=== PATIENT | female | born 1960 | race American Indian/Alaskan Native ===

== ENCOUNTER 2017-06-18 20:13 | Emergency (ER) | payer MEDICARE ==
[2017-06-18 21:46] LABS: Basophils % (Auto) 0.4 % (0.0-1.8); Eosinophils % (Auto) 1.7 % (0.0-4.3); Hematocrit 36.6 % (30.3-42.9); Hemoglobin 11.7 gm/dl (10.1-14.3); Mean Corpuscular HGB Conc 32 % (30-34); Mean Corpuscular Volume 80 fl (79-97); Platelet Count 328 K/mm3 (140-440); Red Blood Count 4.58 M/mm3 (3.65-5.03); Red Cell Distribution Width 16.3 % (13.2-15.2); White Blood Count 13.3 K/mm3 (4.5-11.0)
[2017-06-18 21:50] LABS: Mean Corpuscular Hemoglobin 26 pg (28-32)
[2017-06-18 22:03] LABS: BUN/Creatinine Ratio 20.83; Calcium 8.8 mg/dL (8.4-10.2); Chloride 94.8 mmol/L (98-107); Potassium 4.7 mmol/L (3.6-5.0)
[2017-06-19] MEDS ORDERED: NACL 0.9% 1000 ML 1,000 ML IV ONE (01:20)
--- NOTE | 2017-06-19 01:43 | Emergency Department Report ---
HPI - General Chief Complaint: Hyperglycemia Time Seen by Provider: 06/19/17 00:45 - HPI HPI: This is a 56-year-old female presents to the emergency department with the need for a medication refill and concern for hyperglycemia. The patient is insulin-dependent diabetic and feels like her blood sugar may be running high. Patient takes metformin 1000 mg twice daily. She says that she is also supposed to be on glipizide. She takes Lantus at night and says that she used to be on 80 units in the evening but was started on 40 units the last time she was admitted to the hospital for diabetic ketoacidosis. She does not currently have a primary care physician. She denies any chest pain, headache, vision change, shortness of breath, nausea, vomiting or abdominal pain. The patient says she has been out of her psychiatric medications for the past 6 months. She has not quite out of the diabetes medications but she is about to run out and did not want to wait until that point. ED Past Medical Hx - Past Medical History Previous Medical History?: Yes Hx Congestive Heart Failure: No Hx Diabetes: Yes Hx Liver Disease: No Hx Renal Disease: No Hx Arthritis: Yes Hx Kidney Stones: No Hx Psychiatric Treatment: Yes (depression, mood swings) Hx Asthma: No Hx COPD: No - Surgical History Past Surgical History?: Yes Hx Cholecystectomy: Yes Additional Surgical History: bladder surgery, hysteretomy, kidney stone removal x5, - Social History Smoking Status: Never Smoker Substance Use Type: None - Medications Home Medications: Home Medications Medication Instructions Recorded Confirmed Last Taken Type Metoclopramide HCl [Metoclopramide 10 mg PO DAILY 04/14/17 04/14/17 Unknown History HCl Odt] Oxybutynin Chloride [Ditropan Xl] 15 mg PO QDAY 04/14/17 04/14/17 Unknown History ALBUTEROL Inhaler [ProAir HFA 2 puff IH QID PRN #1 pump 04/16/17 Unknown Rx Inhaler] AtorvaSTATin [Lipitor] 80 mg PO QHS #60 tablet 04/16/17 Unknown Rx Ciprofloxacin HCl [Ciprofloxacin 500 mg PO Q12HR #10 tab 04/16/17 Unknown Rx TAB] FLUoxetine HCL [FLUoxetine] 40 mg PO QAM #30 capsule 04/16/17 Unknown Rx Gabapentin [Neurontin] 300 mg PO Q8HR #90 capsule 04/16/17 Unknown Rx risperiDONE [RisperiDONE] 1 mg PO QDAY #30 tablet 04/16/17 Unknown Rx traMADol [Ultram 50 MG tab] 50 mg PO Q6HR PRN #20 tablet 04/16/17 Unknown Rx Insulin Glargine [Lantus VIAL] 40 units SQ QHS #1 vial 06/19/17 Unknown Rx Metformin HCl [Fortamet ER] 1,000 mg PO BID #60 tab.er.24 06/19/17 Unknown Rx glipiZIDE [glipiZIDE ER] 5 mg PO QAM #30 tab.er.24 06/19/17 Unknown Rx ED Review of Systems ROS: Stated complaint: HIGH BLOOD SUGAR Other details as noted in HPI Comment: All other systems reviewed and negative Constitutional: denies: chills, fever Eyes: denies: eye pain, eye discharge, vision change ENT: denies: ear pain, throat pain Respiratory: denies: cough, shortness of breath, wheezing Cardiovascular: denies: chest pain, palpitations Gastrointestinal: denies: abdominal pain, nausea, diarrhea Genitourinary: denies: urgency, dysuria, discharge Musculoskeletal: denies: back pain, joint swelling, arthralgia Skin: denies: rash, lesions Neurological: denies: headache, weakness, paresthesias Physical Exam - Physical Exam Vital Signs: Vital Signs 06/18/17 06/19/17 06/19/17 21:19 00:32 00:40 Temperature 98.1 F Pulse Rate 83 91 H 79 Respiratory 20 26 H 24 Rate Blood Pressure 160/77 Blood Pressure 147/90 [Right] O2 Sat by Pulse 98 98 97 Oximetry 06/19/17 06/19/17 06/19/17 00:50 01:00 01:09 Temperature 97.8 F Pulse Rate 78 83 Respiratory 24 26 H 17 Rate Blood Pressure 142/72 136/71 Blood Pressure [Right] O2 Sat by Pulse 98 96 Oximetry Physical Exam: GENERAL: The patient is well-developed well-nourished. HEENT: Normocephalic. Atraumatic. Extraocular motions are intact. Patient has moist mucous membranes. Pupils equal reactive to light bilaterally. NECK: Supple. Trachea is midline. CHEST/LUNGS: Clear to auscultation. There is no respiratory distress noted. HEART/CARDIOVASCULAR: Regular. There is no tachycardia. There is no gallop rub or murmur. ABDOMEN: Abdomen is soft, nontender. Patient has normal bowel sounds. There is no abdominal distention. SKIN: Skin is warm and dry. NEURO: The patient is awake, alert, and oriented. The patient is cooperative. The patient has no focal neurologic deficits. The patient has normal speech. MUSCULOSKELETAL: There is no tenderness or deformity. There is no limitation range of motion. There is no evidence of acute injury. ED Course Vital Signs 06/18/17 06/19/17 06/19/17 21:19 00:32 00:40 Temperature 98.1 F Pulse Rate 83 91 H 79 Respiratory 20 26 H 24 Rate Blood Pressure 160/77 Blood Pressure 147/90 [Right] O2 Sat by Pulse 98 98 97 Oximetry 06/19/17 06/19/17 06/19/17 00:50 01:00 01:09 Temperature 97.8 F Pulse Rate 78 83 Respiratory 24 26 H 17 Rate Blood Pressure 142/72 136/71 Blood Pressure [Right] O2 Sat by Pulse 98 96 Oximetry ED Medical Decision Making - Lab Data Result diagrams: 06/18/17 21:37 06/18/17 21:37 - Medical Decision Making 56-year-old female presents the emergency department mostly for medication refill but also with suspicion for elevated blood sugar. She had a blood sugar of 277 upon first presentation but when an Accu-Chek was done it was up greater than 400. There was no elevated anion gap or any venous acidosis and therefore low suspicion for diabetic ketoacidosis. She was given IV fluid resuscitation and IV insulin. Eventually the blood sugar came back down to about 250. Patient was given multiple primary care doctor referrals. She was given a refill of her Lantus, metformin, and I restarted her on glipizide. I did not want had her fourth diabetes medication as I cannot follow her and I did not want to cause hypoglycemia. However the patient was given multiple referrals for primary care and will keep a blood sugar log. She will return to the ER with any worsening of her symptoms or any acute distress. - Differential Diagnosis DKA, HHNK, medication noncompliance Critical Care Time: No Critical care attestation.: If time is entered above; I have spent that time in minutes in the direct care of this critically ill patient, excluding procedure time. ED Disposition Clinical Impression: Hyperglycemia, Medication refill Disposition: DC-01 TO HOME OR SELFCARE Is pt being admited?: No Condition: Stable Prescriptions: Insulin Glargine [Lantus VIAL] 40 units SQ QHS #1 vial glipiZIDE [glipiZIDE ER] 5 mg PO QAM #30 tab.er.24 Metformin HCl [Fortamet ER] 1,000 mg PO BID #60 tab.er.24 Referrals: ELIZABETH POND MD [Primary Care Provider] - 3-5 Days SALVADOR WELLS MD [Staff Physician] - 3-5 Days JACOBO ALVAREZ MD [Staff Physician] - 3-5 Days GUILLERMO SUAREZ MD [Staff Physician] - 3-5 Days FARIDEH NEVAERZ MD [Staff Physician] - 3-5 Days [facility] [Outside] - 3-5 Days Time of Disposition: 05:13
[2017-06-19 01:50] LABS: Bilirubin,Urine NEG (Negative); Blood,Urine NEG (Negative); Ketones,Urine NEG (Negative); Leukocyte Esterase,Urine NEG (Negative); Mucus,Urine FEW /HPF; Nitrite,Urine NEG (Negative); Protein,Urine <15 mg/dL mg/dL (Negative); Urobilinogen,Urine < 2.0 mg/dL (<2.0)
[2017-06-19] MEDS ORDERED: NACL 0.9% 500 ML 500 ML IV ONE (03:00)
[2017-06-19 05:38] VITALS: BP 120/53
== END 2017-06-19 06:01 | disposition home or self-care (01) ==
LOC: ED 20:13
DX: Z76.0 Encounter for issue of repeat prescription (principal); E11.65 Type 2 diabetes mellitus with hyperglycemia
CPT/HCPCS: 36415; 80048; 81001; 82805; 82962; 85025; 96361; 96374; 96376; 99284; J7030; J7040; J1815

== ENCOUNTER 2017-07-06 19:43 | Inpatient (IN) | payer MEDICARE ==
[2017-07-06 21:09] LABS: Urine Drugs of Abuse Note Disclamer
[2017-07-06 21:21] LABS: Bilirubin,Urine NEG (Negative); Blood,Urine NEG (Negative); Ketones,Urine NEG (Negative); Leukocyte Esterase,Urine NEG (Negative); Mucus,Urine FEW /HPF; Nitrite,Urine NEG (Negative); Urobilinogen,Urine < 2.0 mg/dL (<2.0)
--- NOTE | 2017-07-06 21:32 | Emergency Department Report ---
HPI - General Chief Complaint: Overdose Time Seen by Provider: 07/06/17 21:18 - HPI HPI: Room 17 The patient is a 56-year-old female presenting with a chief complaint toothache and overdose. The patient states she's had pain to the left lower jaw for the past 3-4 days. The patient states medications at home helping. The patient admits to taking 40 extended release Tylenol 650 mg tablets at one time yesterday at 20:00. When asked if she was trying to harm herself patient does not respond immediately and hesitates approximately 3 seconds while making eye contact and then states "no because I've taken that much before." Patient says she developed some nausea today Location: See above, mental state Duration: [see above] Quality: Pain Severity:08/17 Modifying factors: [see above] Context: [see above] Mode of transportation: [not driving] ED Past Medical Hx - Past Medical History Previous Medical History?: Yes Hx Diabetes: Yes Hx Arthritis: Yes Hx Psychiatric Treatment: Yes (depression, mood swings) - Surgical History Hx Cholecystectomy: Yes Additional Surgical History: bladder surgery, hysteretomy, kidney stone removal x5, - Family History Family history: no significant - Social History Smoking Status: Never Smoker Substance Use Type: None (denies illicit drug use) - Medications Home Medications: Home Medications Medication Instructions Recorded Confirmed Last Taken Type Metoclopramide HCl [Metoclopramide 10 mg PO DAILY 04/14/17 04/14/17 Unknown History HCl Odt] Oxybutynin Chloride [Ditropan Xl] 15 mg PO QDAY 04/14/17 04/14/17 Unknown History ALBUTEROL Inhaler [ProAir HFA 2 puff IH QID PRN #1 pump 04/16/17 Unknown Rx Inhaler] AtorvaSTATin [Lipitor] 80 mg PO QHS #60 tablet 04/16/17 Unknown Rx Ciprofloxacin HCl [Ciprofloxacin 500 mg PO Q12HR #10 tab 04/16/17 Unknown Rx TAB] FLUoxetine HCL [FLUoxetine] 40 mg PO QAM #30 capsule 04/16/17 Unknown Rx Gabapentin [Neurontin] 300 mg PO Q8HR #90 capsule 04/16/17 Unknown Rx risperiDONE [RisperiDONE] 1 mg PO QDAY #30 tablet 04/16/17 Unknown Rx traMADol [Ultram 50 MG tab] 50 mg PO Q6HR PRN #20 tablet 04/16/17 Unknown Rx Insulin Glargine [Lantus VIAL] 40 units SQ QHS #1 vial 06/19/17 Unknown Rx Metformin HCl [Fortamet ER] 1,000 mg PO BID #60 tab.er.24 06/19/17 Unknown Rx glipiZIDE [glipiZIDE ER] 5 mg PO QAM #30 tab.er.24 06/19/17 Unknown Rx ED Review of Systems ROS: Stated complaint: TOOTH PAIN Other details as noted in HPI Comment: All other systems reviewed and negative Constitutional: denies: chills, fever Eyes: denies: eye pain, eye discharge, vision change ENT: dental pain. denies: ear pain, throat pain Respiratory: denies: cough, shortness of breath, wheezing Cardiovascular: denies: chest pain, palpitations Endocrine: no symptoms reported Gastrointestinal: nausea. denies: abdominal pain, diarrhea Genitourinary: denies: urgency, dysuria, discharge Musculoskeletal: denies: back pain, joint swelling, arthralgia Skin: denies: rash, lesions Neurological: denies: headache, weakness, paresthesias Psychiatric: suicidal thoughts (?) Hematological/Lymphatic: denies: easy bleeding, easy bruising Physical Exam - Physical Exam Vital Signs: Vital Signs 07/06/17 07/06/17 20:01 20:22 Temperature 98 F Pulse Rate 66 Respiratory 18 Rate Physical Exam: GENERAL: The patient is well-developed well-nourished female lying on stretcher not appearing to be in acute distress. [] HEENT: Normocephalic. Atraumatic. Extraocular motions are intact. Tooth #17 appears broken. No gingival erythema or edema NECK: Supple. Trachea midline CHEST/LUNGS: Clear to auscultation. There is no respiratory distress noted. HEART/CARDIOVASCULAR: Regular. There is no tachycardia. There is no gallop rub or murmur. ABDOMEN: Abdomen is soft, nontender. Patient has normal bowel sounds. There is no abdominal distention. SKIN: There is no rash. There is no edema. There is no diaphoresis. NEURO: The patient is awake, alert, and oriented. The patient is cooperative. The patient has normal speech MUSCULOSKELETAL: There is no evidence of acute injury. ED Course Vital Signs 07/06/17 07/06/17 20:01 20:22 Temperature 98 F Pulse Rate 66 Respiratory 18 Rate - Consultations Consultation #1: 07/06/17 21:34 Poison control called 07/06/17 21:40 Patient discussed with poison control-recommends also ordering a lactic acid. We'll call back after discussing with the wildlife biostation research ecologist 07/06/17 21:46 Received callback from poison control- states wildlife biostation research ecologist recommends initiating treatment with Acetadote. States that although the patient weighs 113 kg she should be treated as if she weighs 100 kg. Recommends initiating 150 mg/kg loading dose over one hour and then 50 mg/kg over 4 hours and finally 100 mg/kg over 16 hours. At the 14th hour of treatment we should draw LFTs, INR and acetaminophen level. The LFTs should be less than 100, INR less than 1.5 that should not be a detectable acetaminophen level if these criteria were met Acetadote treatment may stop after 21 hours. If any of the labs are abnormal the patient should receive an additional 16 hours of Acetadote ED Medical Decision Making - Lab Data Result diagrams: 07/06/17 21:29 07/06/17 21:29 Laboratory Tests 07/06/17 07/06/17 07/06/17 20:45 20:45 21:29 WBC RBC Hgb Hct MCV MCH MCHC RDW Plt Count Lymph % (Auto) [place] % (Auto) Eos % (Auto) Baso % (Auto) Lymph # [place] # Eos # Baso # Seg Neutrophils % Seg Neutrophils # PT INR APTT Sodium Potassium Chloride Carbon Dioxide Anion Gap BUN Creatinine Estimated GFR BUN/Creatinine Ratio Glucose Calcium Total Bilirubin AST ALT Alkaline Phosphatase Total Protein Albumin Albumin/Globulin Ratio Urine Color Yellow Urine Turbidity Clear Urine pH 5.0 Ur Specific White 1.038 H Urine Protein 30 mg/dl Urine Glucose (UA) 50 Urine Ketones Neg Urine Blood Neg Urine Nitrite Neg Urine Bilirubin Neg Urine Urobilinogen < 2.0 Ur Leukocyte Esterase Neg Urine WBC (Auto) 2.0 Urine RBC (Auto) 2.0 U Epithel Cells (Auto) 1.0 Urine Mucus Few Salicylates < 0.3 L Urine Opiates Screen Presumptive negative Urine Methadone Screen Presumptive negative Acetaminophen Ur Barbiturates Screen Presumptive negative Ur Phencyclidine Scrn Presumptive negative Ur Amphetamines Screen Presumptive negative U Benzodiazepines Scrn Presumptive negative Urine Cocaine Screen Presumptive negative U Marijuana (THC) Screen Presumptive negative Drugs of Abuse Note Disclamer Plasma/Serum Alcohol 0807/06/17 07/06/17 21:29 21:29 21:29 WBC 14.4 H RBC 4.88 Hgb 12.2 Hct 39.0 MCV 80 MCH 25 L MCHC 31 RDW 15.7 H Plt Count 359 Lymph % (Auto) 12.2 L [place] % (Auto) 2.8 Eos % (Auto) 0.6 Baso % (Auto) 0.2 Lymph # 1.8 [place] # 0.4 Eos # 0.1 Baso # 0.0 Seg Neutrophils % 84.2 H Seg Neutrophils # 12.1 H PT INR APTT Sodium Potassium Chloride Carbon Dioxide Anion Gap BUN Creatinine Estimated GFR BUN/Creatinine Ratio Glucose Calcium Total Bilirubin AST ALT Alkaline Phosphatase Total Protein Albumin Albumin/Globulin Ratio Urine Color Urine Turbidity Urine pH Ur Specific White Urine Protein Urine Glucose (UA) Urine Ketones Urine Blood Urine Nitrite Urine Bilirubin Urine Urobilinogen Ur Leukocyte Esterase Urine WBC (Auto) Urine RBC (Auto) U Epithel Cells (Auto) Urine Mucus Salicylates Urine Opiates Screen Urine Methadone Screen Acetaminophen 37.9 H Ur Barbiturates Screen Ur Phencyclidine Scrn Ur Amphetamines Screen U Benzodiazepines Scrn Urine Cocaine Screen U Marijuana (THC) Screen Drugs of Abuse Note Plasma/Serum Alcohol < 0.01 07/06/17 07/06/17 21:29 21:29 WBC RBC Hgb Hct MCV MCH MCHC RDW Plt Count Lymph % (Auto) [place] % (Auto) Eos % (Auto) Baso % (Auto) Lymph # [place] # Eos # Baso # Seg Neutrophils % Seg Neutrophils # PT 18.2 H INR 1.51 H APTT 29.9 Sodium 135 L Potassium 4.2 Chloride 99.2 Carbon Dioxide 17 L Anion Gap 23 BUN 25 H Creatinine 1.1 Estimated GFR > 60 BUN/Creatinine Ratio 22.72 Glucose 226 H Calcium 8.6 Total Bilirubin 0.80 AST 148 H ALT 207 H Alkaline Phosphatase 149 H Total Protein 7.5 Albumin 3.6 L Albumin/Globulin Ratio 0.9 Urine Color Urine Turbidity Urine pH Ur Specific White Urine Protein Urine Glucose (UA) Urine Ketones Urine Blood Urine Nitrite Urine Bilirubin Urine Urobilinogen Ur Leukocyte Esterase Urine WBC (Auto) Urine RBC (Auto) U Epithel Cells (Auto) Urine Mucus Salicylates Urine Opiates Screen Urine Methadone Screen Acetaminophen Ur Barbiturates Screen Ur Phencyclidine Scrn Ur Amphetamines Screen U Benzodiazepines Scrn Urine Cocaine Screen U Marijuana (THC) Screen Drugs of Abuse Note Plasma/Serum Alcohol - Differential Diagnosis acetaminophen overdose, suicidal ideation, dental carry Critical care attestation.: If time is entered above; I have spent that time in minutes in the direct care of this critically ill patient, excluding procedure time. ED Disposition Clinical Impression: Acetaminophen overdose, Acetaminophen toxicity Disposition: OP ADMIT IP TO THIS HOSP Is pt being admited?: Yes Does the pt Need Aspirin: No Condition: Stable Referrals: PRIMARY CARE, [Primary Care Provider] - 3-5 Days Time of Disposition: 22:20 (hospitalist notified)
[2017-07-06] MEDS ORDERED: ACETADOTE IV ONE (21:45)
[2017-07-06 21:46] LABS: Basophils % (Auto) 0.2 % (0.0-1.8); Eosinophils % (Auto) 0.6 % (0.0-4.3); Hemoglobin 12.2 gm/dl (10.1-14.3); Mean Corpuscular HGB Conc 31 % (30-34); Mean Corpuscular Hemoglobin 25 pg (28-32); Mean Corpuscular Volume 80 fl (79-97); Platelet Count 359 K/mm3 (140-440); Red Blood Count 4.88 M/mm3 (3.65-5.03); Red Cell Distribution Width 15.7 % (13.2-15.2); White Blood Count 14.4 K/mm3 (4.5-11.0)
[2017-07-06 21:56] LABS: INR 1.51 (0.87-1.13); Partial Thromboplastin Time 29.9 Sec. (24.2-36.6)
[2017-07-06 22:08] LABS: Alanine Aminotransferase 207 units/L (7-56); Albumin 3.6 g/dL (3.9-5); Albumin/Globulin Ratio 0.9 %; Alkaline Phosphatase 149 units/L (35-129); Anion Gap 23 mmol/L; BUN/Creatinine Ratio 22.72; Blood Urea Nitrogen 25 mg/dL (7-17); Calcium 8.6 mg/dL (8.4-10.2); Carbon Dioxide 17 mmol/L (22-30); Chloride 99.2 mmol/L (98-107); Glucose 226 mg/dL (65-100); Potassium 4.2 mmol/L (3.6-5.0); Sodium 135 mmol/L (137-145); Total Protein 7.5 g/dL (6.3-8.2)
[2017-07-06] MEDS ORDERED: ACETADOTE 15,000 MG in D5W 200 ML IV ONE (22:15)
[2017-07-06] MEDS ORDERED: D50W (25GM) Syringe IV PRN (23:16)
[2017-07-06] MEDS ORDERED: RESTORIL PO PRN (23:20)
[2017-07-06] MEDS ORDERED: ACETADOTE 5,000 MG in D5W 500 ML IV ONE (23:30)
[2017-07-07] MEDS ORDERED: ACETADOTE 10,000 MG in D5W 1,000 ML IV ONE ×2 (03:30→23:00)
--- NOTE | 2017-07-07 03:50 | History and Physical Report ---
CHIEF COMPLAINT: Drug overdose with Tylenol. HISTORY OF PRESENT ILLNESS: The patient is a 56-year-old female. She says she had toothache, going on for about 3-4 days and the patient took about 40 tablets of extended release Tylenol with strength of about 650 mg over a short period of time yesterday night at about 2000 hours. The patient was questioned by the Emergency Room physician as to whether she wants to harm herself. The patient did not answer immediately according to the Emergency Room physician. Stated that she has taken that much of Tylenol before. When the patient was asked why she took this much Tylenol, she also said that she did not know what else to do at that time,she maintained thather tooth ache persisted. The patient complained of some nausea, but denied any history of abdominal pain and denied any history of dizziness or shortness of breath or chest pain. PAST MEDICAL HISTORY: Pertinent for diabetes mellitus, arthritis, depression, mood swing. PAST SURGICAL HISTORY: Pertinent for bladder surgery, hysterectomy, kidney stone removal x 5 times, also past surgical history of cholecystectomy. FAMILY HISTORY: Noncontributory. SOCIAL HISTORY: The patient does not smoke, does not drink alcohol, and does not use illicit drugs. MEDICATIONS: The patient is on metoclopramide 10 mg by mouth daily, Ditropan 50 mg by mouth daily, albuterol inhaler, ProAir 2 puffs inhalation q.i.d., atorvastatin 80 mg at bedtime, ciprofloxacin 500 mg p.o. q.12 hours, fluoxetine 40 mg p.o. q.a.m., gabapentin, Neurontin 300 mg p.o. q.8 hours. Also, the patient is on risperidone 1 mg p.o. daily, tramadol 50 mg q.6 hours as needed for pain, Lantus insulin 14 units subQ at bedtime, and metformin 1000 mg p.o. b.i.d. The patient is also on glipizide 5 mg every morning. ALLERGIES: There are no known drug allergies. REVIEW OF SYSTEMS: CONSTITUTIONAL: There is no fever, no chills, and no diaphoresis. HEENT: There is no headache or sore throat. There is toothache. CARDIOVASCULAR SYSTEM: There is no chest pain, orthopnea. RESPIRATORY SYSTEM: There is no shortness of breath or cough. GASTROINTESTINAL SYSTEM: Nausea present. No vomiting, no abdominal pain, diarrhea, or constipation. NEUROLOGICAL SYSTEM: There is no numbness, no dizziness, no altered mental status. MUSCULOSKELETAL SYSTEM: There is no joint pain or swelling. DERMATOLOGICAL SYSTEM: There is no skin rash or itching. GENITOURINARY SYSTEM: There is no dysuria, hematuria, or flank pain. Rest of system review is normal. PHYSICAL EXAMINATION: GENERAL: At the time of exam, the patient was found to be alert, oriented x 3, and not in acute distress. VITAL SIGNS: Shows temperature of 98 degrees Fahrenheit, pulse of 89, respirations 18, blood pressure 113/78, and O2 sat of 96% on room air. HEENT: Showed pupils to be equal, round, and reactive to light and accommodation. Extraocular muscles are intact. The patient's oral exam shows decayed left lower premolar tooth. NECK: Supple with no JVD or carotid bruit. CARDIOVASCULAR SYSTEM: Showed normal first and second heart sounds with no gallops or murmur. RESPIRATORY SYSTEM: Show good air entry on both sides of the lungs with no abnormal breath sounds. GASTROINTESTINAL SYSTEM: Show abdomen to be full, soft, nontender with no organomegaly or rigidity. NEUROLOGIC: Shows no focal deficit. MUSCULOSKELETAL SYSTEM: Show no joint swelling or tenderness. DERMATOLOGICAL SYSTEM: Show no skin rash. GENITOURINARY SYSTEM: Showing no costovertebral angle tenderness. PERTINENT LABORATORY AND IMAGING STUDIES: The patient has CBC done that shows elevated white count of 14,400 with normal hemoglobin and normal hematocrit. CBC differential shows elevated neutrophil count of 84.2%. Coagulation study showed elevated INR of 1.51 with elevated PT of 18.2. Chemistry showed low sodium of 135, normal chloride level with low CO2 of 17 and elevated BUN of 25 with high blood glucose of 226 and elevated lactic acid level of 2.5. The patient's liver transaminases show a high AST of 148 and high ALT of 207 with elevated alkaline phosphatase of 149 and low albumin of 3.6. Urinalysis showed urine with high specific gravity of 1.038, negative leukocyte esterase and negative nitrites, normal urine wbc's as well as normal urine rbc's. Toxicology test shows unremarkable salicylate level of less than 0.3 and elevated serum level of acetaminophen with a value of 37.9. DIAGNOSES: 1. Acetaminophen overdose. 2. Toothache. 3. Dental caries. PLAN: The patient will be admitted to ICU and we will have Accu-Chek before meals and at bedtime, followed by low-dose sliding scale using regular insulin. The patient's diet will be consistent with carbohydrate diet. The patient will have Tylenol level, liver function test, and prothrombin time checked 49 hours from the time of first dose of acetylcysteine according to the recommendations from Poison Control by Emergency Room doctor that admitted the patient. Also, the patient will continue the acetylcysteine orders given by the Emergency Room doctor, arranged and certified by the pharmacist for the treatment of the Tylenol overdose. The patient will be on amoxicillin 500 mg p.o. q.8 hours for dental caries and heparin 5000 units subq q.12 hours for DVT prophylaxis. The patient will be on IV Dilaudid 0.5 mg every 6 hours as needed for pain and will be on normal saline at 125 mL per hour. The patient will also be on IV Zofran 4 mg every 8 hours as needed for nausea and vomiting, and temazepam 15 mg at bedtime for insomnia. The patient's monitoring of her acetaminophen level will be according to Poison Control recommendations, which was noted by the Emergency Room doctor. The patient's home medications will be reconciled and started accordingly.Patient will be seen by mental health providers. JOB# [id number] KIT/FINN MERLOS
--- NOTE | 2017-07-07 04:29 | Admit Criteria Form ---
Admission Criteria Documentation: DRUG INGESTION OR OVERDOSE Clinical Indications for Admission to Inpatient Care ( [place]/check or initial the applicable condition/criteria) Admission is indicated for severe toxicity as indicated by 1 or more of the following(1)(2)(3) )(4)(5)(6) I. Hemodynamic instability. II. Dangerous arrhythmia III. Respiratory abnormalities IV. Hypertension requiring inpatient treatment V. Specific finding indicating severe and likely prolonged or drug toxicity [X]. Inpatient admission required rather than observation care (See Drug Ingestion or Overdose: Observation Care guideline as appropriate) because 1 or more of the following(9)(10) a) Altered mental status that is severe or persistent b) Clinical finding(e.g., metabolic acidosis, hypoglycemia, bradycardia) that is severe or persistent(11) [X]c) Toxic drug level that is persistent or necessitates ongoing treatment (e.g. acetaminophen overdose) d) Recurrent seizures e) Psychiatric risk status not acceptable for outpatient management f) Continuous intravenous infusion of anticoagulation, platelet inhibitor, vasoactive,or antiarrhythmic medication(12)(13) g) Other condition, treatment or monitoring requiring inpatient admission Extended stay beyond goal length of stay may be needed for (4) (24) a) Neurologic or respiratory compromise(15)(25) b) Hemodynamic instability c) Persistent toxic drug levels (26) d) Severe drug toxicities or complications(5)(27)(28) e) Ongoing antidote treatment(e.g., acetaminophen overdose) (11)(23)(29)(29)(30) (31) f) Older patient The original [employer] content created by [employer] has been revised. The portions of the content which have been revised are identified through the use of italic text or in bold, and [facility] has neither reviewed nor approved the modified material. All other unmodified content is copyright [facility]. Please see references footnoted in the original [facility] edition 2017 Admission Criteria Met: Yes
[2017-07-07] MEDS: TRIMOX PO SCH ×3 (06:10→23:00)
[2017-07-07] MEDS ORDERED: NACL 0.9% 1000 ML 1,000 ML ONE (06:21)
[2017-07-07] MEDS: NACL 0.9% 1000 ML 1,000 ML IV SCH (09:00)
[2017-07-07] MEDS: HEPARIN SUB-Q SCH ×2 (10:00→23:36)
[2017-07-07] MEDS: DILAUDID IM PRN ×2 (10:18→23:05)
[2017-07-07 12:29] LABS: INR 2.17 (0.87-1.13)
[2017-07-07 12:36] LABS: Albumin 3.1 g/dL (3.9-5); Albumin/Globulin Ratio 0.9 %; Bilirubin,Direct 0.7 mg/dL (0-0.2); Bilirubin,Indirect 0.5 mg/dL; Bilirubin,Total 1.2 mg/dL (0.1-1.2); Total Protein 6.7 g/dL (6.3-8.2)
--- NOTE | 2017-07-07 18:22 | Progress Note ---
Assessment and Plan Assessment and plan: The patient is a 56-year-old female presenting with a chief complaint toothache and overdose. The patient states she's had pain to the left lower jaw for the past 3-4 days. The patient states medications at home helping. The patient admits to taking 40 extended release Tylenol 650 mg tablets at one time yesterday at 20:00. When asked if she was trying to harm herself patient does not respond immediately and hesitates approximately 3 seconds while making eye contact and then states "no because I've taken that much before." Patient says she developed some nausea today Tylenol poisoning tylenol level trending down, continue IVF, Poison control input appreciated Acute Toxic hepatitis -due to tylenol toxicity, improving Suicidal attempt 1013 and mental health consult may need inpatient psych placement Tooth ache/dental carries abx and pain meds dvt ppx lovenox History Interval history: Patient has been calm and cooperative, no events Hospitalist Physical - Physical exam Narrative exam: General.: Appears well, no distress, nontoxic HEENT:poor dentition Neck: supple Cardiac: S1-S2 heard Lungs: clear to auscultation bilaterally Abdomen: soft , nontender, nondistended, bowel sounds positive Extremities: no edema clubbing or cyanosis Skin: no rash or lesions Neurologic: no gross focal deficits Psych: inappropriate behavior, laughing inappropriately, lacks insight - Constitutional Vitals: Temp Pulse Resp BP Pulse Ox 98.3 F 75 19 136/75 98 07/07/17 09:15 07/07/17 17:31 07/07/17 17:31 07/07/17 17:31 07/07/17 17:31 Results - Labs CBC & Chem 7: 07/06/17 21:29 07/06/17 21:29 Labs: Laboratory Last Values WBC 14.4 K/mm3 (4.5-11.0) H 07/06/17 21:29 RBC 4.88 M/mm3 (3.65-5.03) 07/06/17 21:29 Hgb 12.2 gm/dl (10.1-14.3) 07/06/17 21:29 Hct 39.0 % (30.3-42.9) 07/06/17 21:29 MCV 80 fl (79-97) 07/06/17 21:29 MCH 25 pg (28-32) L 07/06/17 21: MCHC 31 % (30-34) 07/06/17 21: RDW 15.7 % (13.2-15.2) H 07/06/17 21:29 Plt Count 359 K/mm3 (140-440) 07/06/17 21:29 Lymph % (Auto) 12.2 % (13.4-35.0) L 07/06/17 21: [place] % (Auto) 2.8 % (0.0-7.3) 07/06/17 21: Eos % (Auto) 0.6 % (0.0-4.3) 07/06/17 21: Baso % (Auto) 0.2 % (0.0-1.8) 07/06/17 21: Lymph # 1.8 K/mm3 (1.2-5.4) 07/06/17 21: [place] # 0.4 K/mm3 (0.0-0.8) 07/06/17 21: Eos # 0.1 K/mm3 (0.0-0.4) 07/06/17 21: Baso # 0.0 K/mm3 (0.0-0.1) 07/06/17 21: Seg Neutrophils % 84.2 % (40.0-70.0) H 07/06/17 21: Seg Neutrophils # 12.1 K/mm3 (1.8-7.7) H 07/06/17 21:29 PT 24.2 Sec. (12.2-14.9) H 07/07/17 11:37 INR 2.17 (0.87-1.13) H 07/07/17 11:37 APTT 29.9 Sec. (24.2-36.6) 07/06/17 21:29 Sodium 135 mmol/L (137-145) L 07/06/17 21:29 Potassium 4.2 mmol/L (3.6-5.0) 07/06/17 21: Chloride 99.2 mmol/L (98-107) 07/06/17 21:29 Carbon Dioxide 17 mmol/L (22-30) L 07/06/17 21:29 Anion Gap 23 mmol/L 07/06/17 21:29 BUN 25 mg/dL (7-17) H 07/06/17 21:29 Creatinine 1.1 mg/dL (0.7-1.2) 07/06/17 21:29 Estimated GFR > 60 ml/min 07/06/17 21:29 BUN/Creatinine Ratio 22.72 % 07/06/17 21:29 Glucose 226 mg/dL (65-100) H 07/06/17 21:29 POC Glucose 253 (70-105) H 07/07/17 17:31 Lactic Acid 2.50 mmol/L (0.7-2.0) H* 07/06/17 23:42 Calcium 8.6 mg/dL (8.4-10.2) 07/06/17 21:29 Total Bilirubin 1.20 mg/dL (0.1-1.2) 07/07/17 11:37 Direct Bilirubin 0.7 mg/dL (0-0.2) H 07/07/17 11:37 Indirect Bilirubin 0.5 mg/dL 07/07/17 11:37 AST 594 units/L (5-40) H 07/07/17 11:37 ALT 550 units/L (7-56) H 07/07/17 11:37 Alkaline Phosphatase 138 units/L (35-129) H 07/07/17 11:37 Total Protein 6.7 g/dL (6.3-8.2) 07/07/17 11:37 Albumin 3.1 g/dL (3.9-5) L 07/07/17 11:37 Albumin/Globulin Ratio 0.9 % 07/07/17 11:37 Urine Color Yellow (Yellow) 07/06/17 20:45 Urine Turbidity Clear (Clear) 07/06/17 20:45 Urine pH 5.0 (5.0-7.0) 07/06/17 20:45 Ur Specific [place] 1.038 (1.003-1.030) H 07/06/17 20:45 Urine Protein 30 mg/dl mg/dL (Negative) 07/06/17 20:45 Urine Glucose (UA) 50 mg/dL (Negative) 07/06/17 20:45 Urine Ketones Neg mg/dL (Negative) 07/06/17 20:45 Urine Blood Neg (Negative) 07/06/17 20:45 Urine Nitrite Neg (Negative) 07/06/17 20:45 Urine Bilirubin Neg (Negative) 07/06/17 20:45 Urine Urobilinogen < 2.0 mg/dL (<2.0) 07/06/17 20:45 Ur Leukocyte Esterase Neg (Negative) 07/06/17 20:45 Urine WBC (Auto) 2.0 /HPF (0.0-6.0) 07/06/17 20:45 Urine RBC (Auto) 2.0 /HPF (0.0-6.0) 07/06/17 20:45 U Epithel Cells (Auto) 1.0 /HPF (0-13.0) 07/06/17 20:45 Urine Mucus Few /HPF 07/06/17 20:45 Salicylates < 0.3 mg/dL (2.8-20.0) L 07/06/17 21:29 Urine Opiates Screen Presumptive negative 07/06/17 20:45 Urine Methadone Screen Presumptive negative 07/06/17 20:45 Acetaminophen < 15.0 ug/mL (10.0-30.0) 07/07/17 12:00 Ur Barbiturates Screen Presumptive negative 07/06/17 20:45 Ur Phencyclidine Scrn Presumptive negative 07/06/17 20:45 Ur Amphetamines Screen Presumptive negative 07/06/17 20:45 U Benzodiazepines Scrn Presumptive negative 07/06/17 20:45 Urine Cocaine Screen Presumptive negative 07/06/17 20:45 U Marijuana (THC) Screen Presumptive negative 07/06/17 20:45 Drugs of Abuse Note Disclamer 07/06/17 20:45 Plasma/Serum Alcohol < 0.01 gm% (0-0.07) 07/06/17 21:29
[2017-07-07 22:02] LABS: INR 1.94 (0.87-1.13)
[2017-07-07 22:12] LABS: Alanine Aminotransferase 1052 units/L (7-56)
[2017-07-08] MEDS: TRIMOX PO SCH ×3 (05:24→21:45)
[2017-07-08] MEDS: ZOFRAN IV PRN (08:59)
[2017-07-08] MEDS: HEPARIN SUB-Q SCH ×2 (10:33→21:54)
[2017-07-08] MEDS: DILAUDID IM PRN ×2 (12:57→21:45)
--- NOTE | 2017-07-08 15:34 | Consultation ---
History of Present Illness - Reason for Consult Consult date: 07/08/17 Reason for consult: Mental Health Evaluation Requesting physician: CARLOS SALMERON - Chief Complaint Chief complaint: "I just had a toothache" - History of Present Psychiatric Illness The patient is a 56-year-old female presenting with a chief complaint toothache and overdose. Today patient is calm, cooperative, but withdrawn during the assessment. She stated that she had a "terrible toothache" and decided to take 40 Tylenol pills. She stated that she counted out 40 pills and swallowed them. She admitted to a past suicide attempt by overdosing on pills. She stated that she don't "feel a certain way" about her actions. When asked was she trying to end her life, she wouldn't answer initially. After looking away several time, the patient stated, "I didn't try to kill myself." She was asked if she thought the amount of pills was excessive she stated, "maybe." She would not confirm or deny having depression symptoms prior to swallowing the Tylenol. She denies SI/ HI's and AVH's. She denies recreational drug use and excessive alcohol consumption (etoh). She denies being irritable and talkative, but admit to erratic sleep. She stated being dx with depression and currently take Abilify, Prozac, and Trazodone. She stated that her medications are managed by her General Practitioner. Medications and Allergies Allergies Allergy/AdvReac Type Severity Reaction Status Date / Time No Known Allergies Allergy Verified 04/14/17 12:33 Home Medications Medication Instructions Recorded Confirmed Last Taken Type Metoclopramide HCl [Metoclopramide 10 mg PO DAILY 04/14/17 07/08/17 1 Day Ago History HCl Odt] Oxybutynin Chloride [Ditropan Xl] 15 mg PO QDAY 04/14/17 07/08/17 1 Day Ago History ALBUTEROL Inhaler [ProAir HFA 2 puff IH QID PRN #1 pump 04/16/17 07/08/17 1 Day Ago Rx Inhaler] AtorvaSTATin [Lipitor] 80 mg PO QHS #60 tablet 04/16/17 07/08/17 1 Day Ago Rx FLUoxetine HCL [FLUoxetine] 40 mg PO QAM #30 capsule 04/16/17 07/08/17 1 Day Ago Rx Gabapentin [Neurontin] 300 mg PO Q8HR #90 capsule 04/16/17 07/08/17 1 Day Ago Rx risperiDONE [RisperiDONE] 1 mg PO QDAY #30 tablet 04/16/17 07/08/17 1 Day Ago Rx Insulin Glargine [Lantus VIAL] 40 units SQ QHS #1 vial 06/19/17 07/08/17 1 Day Ago Rx Metformin HCl [Fortamet ER] 1,000 mg PO BID #60 tab.er.24 06/19/17 07/08/17 1 Day Ago Rx glipiZIDE [glipiZIDE ER] 5 mg PO QAM #30 tab.er.24 06/19/17 07/08/17 1 Day Ago Rx Active Meds: Active Medications Amoxicillin (Trimox) 500 mg PO Q8HR [facility] Last Admin: 07/08/17 13:35 Dose: 500 mg Dextrose (D50w (25gm) Syringe) 50 ml IV PRN PRN PRN Reason: Hypoglycemia Heparin Sodium (Porcine) (Heparin) 5,000 unit SUB-Q Q12HR [facility] Last Admin: 07/08/17 10:33 Dose: 5,000 unit Hydromorphone HCl (Dilaudid) 0.5 mg IM Q6H PRN PRN Reason: Pain Last Admin: 07/08/17 12:57 Dose: 0.5 mg Sodium Chloride (Nacl 0.9% 1000 Ml) 1,000 mls @ 125 mls/hr IV DIRECT SPENSER Last Admin: 07/07/17 09:00 Dose: 125 mls/hr Acetylcysteine 10,000 mg/ (Dextrose) 1,050 mls @ 62.5 mls/hr IV ONCE ONE Stop: 07/08/17 15:47 Last Admin: 07/07/17 23:04 Dose: 62.5 mls/hr Insulin Human Regular (Novolin R) 0 units SUB-Q AC [facility] PRN Reason: Protocol Last Admin: 07/08/17 12:59 Dose: 3 units Insulin Human Regular (Novolin R) 0 units SUB-Q QHS [facility] PRN Reason: Protocol Last Admin: 07/07/17 23:00 Dose: 3 units Ondansetron HCl (Zofran) 4 mg IV Q8H PRN PRN Reason: Nausea And Vomiting Last Admin: 07/08/17 08:59 Dose: 4 mg Temazepam (Restoril) 15 mg PO QHS PRN PRN Reason: Insomnia Past psychiatric history - Past Medical History Past Medical History: arthritis, diabetes Past Surgical History: Other (Bladder Surgery, Kidney Surgery) - past Psychiatric treatment and history Psych: Depression psychiatric treatment history: Patient has been inpatient at [facility]. Patient denies a fam psy hx. Mental Status Exam - Vital signs Last Vital Signs Temp 98.4 F 07/08/17 12:30 Pulse 86 07/08/17 12:30 Resp 20 07/08/17 12:30 BP 140/68 07/08/17 12:30 Pulse Ox 95 07/08/17 12:30 - Exam Narrative exam: ROS: (+) depression MSE: Appearance: calm, cooperative Behavior: poor eye contact Speech: regular rate and tone Mood: "okay" withdrawn Affect: congruent to mood Thought Process: circumstantial Thought Content: denies SI/HI's and AVH's Motor Activity: ambulatory Cognition: A/Ox 3 Insight: variable Judgment: variable Results Result Diagrams: 07/06/17 21:29 07/06/17 21:29 Abnormal lab results 07/07/17 07/07/17 07/07/17 Range/Units 17:31 21:09 21:11 PT 22.2 H (12.2-14.9) Sec. INR 1.94 H (0.87-1.13) POC Glucose 253 H 217 H (70-105) AST (5-40) units/L ALT (7-56) units/L 07/07/17 Range/Units 21:11 PT (12.2-14.9) Sec. INR (0.87-1.13) POC Glucose (70-105) AST 1137 H (5-40) units/L ALT 1052 H (7-56) units/L All other labs normal. Assessment and Plan Assessment and plan: Impression: Historical Dx: Depression. MDD severe type. Today patient is calm, cooperative, but withdrawn during the assessment. Overdose on Tylenol. Tylenol level on admission 37.9. LF's elevated. Lactic 2.50. DDx: R/O Bipolar Recommendation/Plan: Continue 1013 with placement to inpatient psy services once medically clear. Start Prozac 20 mg PO daily for depression, Trazodone 50 mg PO HS for sleep, and Abilify 5 mg PO for adjunct treatment (depression). Discussed with patient how important it is to monitor her glucose since she takes Abilify (possible metabolic side effects). Discussed possible suicidality/ medication induced abby reference Prozac/Trazodone.
--- NOTE | 2017-07-08 17:36 | Progress Note ---
Assessment and Plan Assessment and plan: The patient is a 56-year-old female presenting with a chief complaint toothache and overdose. The patient states she's had pain to the left lower jaw for the past 3-4 days. The patient states medications at home helping. The patient admits to taking 40 extended release Tylenol 650 mg tablets at one time yesterday at 20:00. When asked if she was trying to harm herself patient does not respond immediately and hesitates approximately 3 seconds while making eye contact and then states "no because I've taken that much before." Patient says she developed some nausea today Tylenol poisoning tylenol level trending down, continue IVF, Poison control input appreciated Acute Toxic hepatitis -due to tylenol toxicity, improving Suicidal attempt continue 1013 mental health consult appreciated may need inpatient psych placement Tooth ache/dental carries abx and pain meds dvt ppx lovenox History Interval history: Patient has been calm and cooperative, no events Hospitalist Physical - Physical exam Narrative exam: General.: Appears well, no distress, nontoxic HEENT:poor dentition Neck: supple Cardiac: S1-S2 heard Lungs: clear to auscultation bilaterally Abdomen: soft , nontender, nondistended, bowel sounds positive Extremities: no edema clubbing or cyanosis Skin: no rash or lesions Neurologic: no gross focal deficits Psych: inappropriate behavior, laughing inappropriately, lacks insight - Constitutional Vitals: Temp Pulse Resp BP Pulse Ox 98.4 F 86 20 140/68 95 07/08/17 12:30 07/08/17 12:30 07/08/17 12:30 07/08/17 12:30 07/08/17 12:30 Results - Labs CBC & Chem 7: 07/06/17 21:29 07/06/17 21:29 Labs: Laboratory Last Values WBC 14.4 K/mm3 (4.5-11.0) H 07/06/17 21:29 RBC 4.88 M/mm3 (3.65-5.03) 07/06/17 21:29 Hgb 12.2 gm/dl (10.1-14.3) 07/06/17 21:29 Hct 39.0 % (30.3-42.9) 07/06/17 21:29 MCV 80 fl (79-97) 07/06/17 21:29 MCH 25 pg (28-32) L 07/06/17 21: MCHC 31 % (30-34) 07/06/17 21: RDW 15.7 % (13.2-15.2) H 07/06/17 21:29 Plt Count 359 K/mm3 (140-440) 07/06/17 21:29 Lymph % (Auto) 12.2 % (13.4-35.0) L 07/06/17 21: [place] % (Auto) 2.8 % (0.0-7.3) 07/06/17 21: Eos % (Auto) 0.6 % (0.0-4.3) 07/06/17 21: Baso % (Auto) 0.2 % (0.0-1.8) 07/06/17 21: Lymph # 1.8 K/mm3 (1.2-5.4) 07/06/17 21: [place] # 0.4 K/mm3 (0.0-0.8) 07/06/17 21: Eos # 0.1 K/mm3 (0.0-0.4) 07/06/17 21: Baso # 0.0 K/mm3 (0.0-0.1) 07/06/17 21: Seg Neutrophils % 84.2 % (40.0-70.0) H 07/06/17 21: Seg Neutrophils # 12.1 K/mm3 (1.8-7.7) H 07/06/17 21:29 PT 22.2 Sec. (12.2-14.9) H 07/07/17 21:11 INR 1.94 (0.87-1.13) H 07/07/17 21:11 APTT 29.9 Sec. (24.2-36.6) 07/06/17 21:29 Sodium 135 mmol/L (137-145) L 07/06/17 21:29 Potassium 4.2 mmol/L (3.6-5.0) 07/06/17 21:29 Chloride 99.2 mmol/L (98-107) 07/06/17 21:29 Carbon Dioxide 17 mmol/L (22-30) L 07/06/17 21:29 Anion Gap 23 mmol/L 07/06/17 21:29 BUN 25 mg/dL (7-17) H 07/06/17 21:29 Creatinine 1.1 mg/dL (0.7-1.2) 07/06/17 21:29 Estimated GFR > 60 ml/min 07/06/17 21:29 BUN/Creatinine Ratio 22.72 % 07/06/17 21:29 Glucose 226 mg/dL (65-100) H 07/06/17 21:29 POC Glucose 271 (70-105) H 07/08/17 12:12 Lactic Acid 2.50 mmol/L (0.7-2.0) H* 07/06/17 23:42 Calcium 8.6 mg/dL (8.4-10.2) 07/06/17 21:29 Total Bilirubin 1.20 mg/dL (0.1-1.2) 07/07/17 11:37 Direct Bilirubin 0.7 mg/dL (0-0.2) H 07/07/17 11:37 Indirect Bilirubin 0.5 mg/dL 07/07/17 11:37 AST 1137 units/L (5-40) H 07/07/17 21:11 ALT 1052 units/L (7-56) H 07/07/17 21:11 Alkaline Phosphatase 138 units/L (35-129) H 07/07/17 11:37 Total Protein 6.7 g/dL (6.3-8.2) 07/07/17 11:37 Albumin 3.1 g/dL (3.9-5) L 07/07/17 11:37 Albumin/Globulin Ratio 0.9 % 07/07/17 11:37 Urine Color Yellow (Yellow) 07/06/17 20:45 Urine Turbidity Clear (Clear) 07/06/17 20:45 Urine pH 5.0 (5.0-7.0) 07/06/17 20:45 Ur Specific [place] 1.038 (1.003-1.030) H 07/06/17 20:45 Urine Protein 30 mg/dl mg/dL (Negative) 07/06/17 20:45 Urine Glucose (UA) 50 mg/dL (Negative) 07/06/17 20:45 Urine Ketones Neg mg/dL (Negative) 07/06/17 20:45 Urine Blood Neg (Negative) 07/06/17 20:45 Urine Nitrite Neg (Negative) 07/06/17 20:45 Urine Bilirubin Neg (Negative) 07/06/17 20:45 Urine Urobilinogen < 2.0 mg/dL (<2.0) 07/06/17 20:45 Ur Leukocyte Esterase Neg (Negative) 07/06/17 20:45 Urine WBC (Auto) 2.0 /HPF (0.0-6.0) 07/06/17 20:45 Urine RBC (Auto) 2.0 /HPF (0.0-6.0) 07/06/17 20:45 U Epithel Cells (Auto) 1.0 /HPF (0-13.0) 07/06/17 20:45 Urine Mucus Few /HPF 07/06/17 20:45 Salicylates < 0.3 mg/dL (2.8-20.0) L 07/06/17 21:29 Urine Opiates Screen Presumptive negative 07/06/17 20:45 Urine Methadone Screen Presumptive negative 07/06/17 20:45 Acetaminophen < 15.0 ug/mL (10.0-30.0) 07/07/17 21:11 Ur Barbiturates Screen Presumptive negative 07/06/17 20:45 Ur Phencyclidine Scrn Presumptive negative 07/06/17 20:45 Ur Amphetamines Screen Presumptive negative 07/06/17 20:45 U Benzodiazepines Scrn Presumptive negative 07/06/17 20:45 Urine Cocaine Screen Presumptive negative 07/06/17 20:45 U Marijuana (THC) Screen Presumptive negative 07/06/17 20:45 Drugs of Abuse Note Disclamer 07/06/17 20:45 Plasma/Serum Alcohol < 0.01 gm% (0-0.07) 07/06/17 21:29
[2017-07-08] MEDS: PROzac PO SCH (17:49)
[2017-07-08] MEDS: ABILIFY PO SCH (17:49)
[2017-07-08] MEDS: NACL 0.9% 1000 ML 1,000 ML IV SCH (19:10)
[2017-07-08] MEDS: DESYREL PO SCH (21:45)
[2017-07-09 01:19] LABS: INR 1.59 (0.87-1.13)
[2017-07-09 01:32] LABS: Albumin/Globulin Ratio 0.9 %; Bilirubin,Direct 0.6 mg/dL (0-0.2); Total Protein 6.4 g/dL (6.3-8.2)
[2017-07-09 02:56] LABS: Bilirubin,Indirect 0.5 mg/dL; Bilirubin,Total 1.1 mg/dL (0.1-1.2)
--- NOTE | 2017-07-09 05:27 | Event Note ---
Date: 07/09/17 Positive control has been called him on patient to check the treatment of Tylenol overdose,I spoke with Ms. Garcia at about 520a.m and discussed lab results that shows INR of 1.59, liver transaminases above 2000 which is an increase from the last levels checked on 07/07/17. The poison accounting manager assistant controller Ms Garcia, recommended giving another dose of acetylcystein maintenance dose for 16 hours and checking the labs involving liver transaminases and PT/INR 14 hours after starting the treatment and discussing with poison control. Plan of care is to follow poison control recommendations.
[2017-07-09] MEDS ORDERED: ACETADOTE 10,000 MG in D5W 1,000 ML IV ONE ×2 (06:00→12:00)
--- NOTE | 2017-07-09 06:20 | Event Note ---
Date: 07/09/17 Poison control valve mechanic Ms Garcia called back and stated that her french folder recommended giving the patient another dose of Acetylcystein starting with loading dose and continuing uninteruptedly with maitainance dose for 21 hours with lab test involving LFT and PT/INR done at 14 hours from the time of starting the treatment. Plan of care is to follow the new poison control recommendations.
[2017-07-09] MEDS ORDERED: ACETADOTE 15,000 MG in D5W 200 ML IV ONE (07:00)
[2017-07-09] MEDS: TRIMOX PO SCH ×3 (07:14→21:17)
[2017-07-09 07:37] LABS: INR 1.7 (0.87-1.13)
[2017-07-09 07:44] LABS: Albumin 2.8 g/dL (3.9-5); Albumin/Globulin Ratio 0.8 %; Bilirubin,Direct 0.9 mg/dL (0-0.2); Bilirubin,Indirect 0.5 mg/dL; Bilirubin,Total 1.4 mg/dL (0.1-1.2); Total Protein 6.2 g/dL (6.3-8.2)
[2017-07-09] MEDS ORDERED: ACETADOTE 5,000 MG in D5W 500 ML IV ONE (08:00)
[2017-07-09] MEDS: DILAUDID IM PRN ×2 (08:51→19:07)
[2017-07-09] MEDS: ZOFRAN IV PRN (08:51)
--- NOTE | 2017-07-09 10:09 | Progress Note ---
Assessment and Plan Assessment and plan: The patient is a 56-year-old female presenting with a chief complaint toothache and overdose. The patient states she's had pain to the left lower jaw for the past 3-4 days. The patient states medications at home helping. The patient admits to taking 40 extended release Tylenol 650 mg tablets at one time yesterday at 20:00. When asked if she was trying to harm herself patient does not respond immediately and hesitates approximately 3 seconds while making eye contact and then states "no because I've taken that much before." Patient says she developed some nausea today Tylenol poisoning tylenol level trending down, continue IVF, Poison control input appreciated continue N- Acetylcystein and IVF Acute Toxic hepatitis -due to tylenol toxicity, continue to monitor, LFTs and PT trending up Suicidal attempt continue 1013 mental health consult appreciated may need inpatient psych placement Tooth ache/dental carries abx and pain meds dvt ppx lovenox History Interval history: Patient has been calm and cooperative, no events Hospitalist Physical - Physical exam Narrative exam: General.: Appears well, no distress, nontoxic HEENT:poor dentition Neck: supple Cardiac: S1-S2 heard Lungs: clear to auscultation bilaterally Abdomen: soft , nontender, nondistended, bowel sounds positive Extremities: no edema clubbing or cyanosis Skin: no rash or lesions Neurologic: no gross focal deficits Psych: inappropriate behavior, laughing inappropriately, lacks insight - Constitutional Vitals: Temp Pulse Resp BP Pulse Ox 100.0 F H 83 20 130/69 100 07/09/17 07:33 07/09/17 07:33 07/09/17 07:33 07/09/17 07:33 07/09/17 04:00 Results - Labs CBC & Chem 7: 07/06/17 21:29 07/09/17 10:17 Labs: Laboratory Last Values WBC 14.4 K/mm3 (4.5-11.0) H 07/06/17 21:29 RBC 4.88 M/mm3 (3.65-5.03) 07/06/17 21:29 Hgb 12.2 gm/dl (10.1-14.3) 07/06/17 21:29 Hct 39.0 % (30.3-42.9) 07/06/17 21:29 MCV 80 fl (79-97) 07/06/17 21:29 MCH 25 pg (28-32) L 07/06/17 21:29 MCHC 31 % (30-34) 07/06/17 21: RDW 15.7 % (13.2-15.2) H 07/06/17 21:29 Plt Count 359 K/mm3 (140-440) 07/06/17 21: Lymph % (Auto) 12.2 % (13.4-35.0) L 07/06/17 21: [place] % (Auto) 2.8 % (0.0-7.3) 07/06/17 21: Eos % (Auto) 0.6 % (0.0-4.3) 07/06/17 21: Baso % (Auto) 0.2 % (0.0-1.8) 07/06/17 21: Lymph # 1.8 K/mm3 (1.2-5.4) 07/06/17 21: [place] # 0.4 K/mm3 (0.0-0.8) 07/06/17 21: Eos # 0.1 K/mm3 (0.0-0.4) 07/06/17 21: Baso # 0.0 K/mm3 (0.0-0.1) 07/06/17 21: Seg Neutrophils % 84.2 % (40.0-70.0) H 07/06/17 21: Seg Neutrophils # 12.1 K/mm3 (1.8-7.7) H 07/06/17 21:29 PT 20.9 Sec. (12.2-14.9) H 07/09/17 06:54 INR 1.70 (0.87-1.13) H 07/09/17 06:54 APTT 29.9 Sec. (24.2-36.6) 07/06/17 21:29 Sodium 135 mmol/L (137-145) L 07/06/17 21: Potassium 4.2 mmol/L (3.6-5.0) 07/06/17 21: Chloride 99.2 mmol/L (98-107) 07/06/17 21: Carbon Dioxide 17 mmol/L (22-30) L 07/06/17 21:29 Anion Gap 23 mmol/L 07/06/17 21:29 BUN 25 mg/dL (7-17) H 07/06/17 21:29 Creatinine 1.1 mg/dL (0.7-1.2) 07/06/17 21:29 Estimated GFR > 60 ml/min 07/06/17 21:29 BUN/Creatinine Ratio 22.72 % 07/06/17 21:29 Glucose 226 mg/dL (65-100) H 07/06/17 21:29 POC Glucose 271 (70-105) H 07/08/17 12:12 Lactic Acid 2.50 mmol/L (0.7-2.0) H* 07/06/17 23:42 Calcium 8.6 mg/dL (8.4-10.2) 07/06/17 21:29 Total Bilirubin 1.40 mg/dL (0.1-1.2) H 07/09/17 06:54 Direct Bilirubin 0.9 mg/dL (0-0.2) H 07/09/17 06:54 Indirect Bilirubin 0.5 mg/dL 07/09/17 06:54 AST 3827 units/L (5-40) H 07/09/17 06:54 ALT 3404 units/L (7-56) H 07/09/17 06:54 Alkaline Phosphatase 171 units/L (35-129) H 07/09/17 06:54 Total Protein 6.2 g/dL (6.3-8.2) L 07/09/17 06:54 Albumin 2.8 g/dL (3.9-5) L 07/09/17 06:54 Albumin/Globulin Ratio 0.8 % 07/09/17 06:54 Urine Color Yellow (Yellow) 07/06/17 20:45 Urine Turbidity Clear (Clear) 07/06/17 20:45 Urine pH 5.0 (5.0-7.0) 07/06/17 20:45 Ur Specific [place] 1.038 (1.003-1.030) H 07/06/17 20:45 Urine Protein 30 mg/dl mg/dL (Negative) 07/06/17 20:45 Urine Glucose (UA) 50 mg/dL (Negative) 07/06/17 20:45 Urine Ketones Neg mg/dL (Negative) 07/06/17 20:45 Urine Blood Neg (Negative) 07/06/17 20:45 Urine Nitrite Neg (Negative) 07/06/17 20:45 Urine Bilirubin Neg (Negative) 07/06/17 20:45 Urine Urobilinogen < 2.0 mg/dL (<2.0) 07/06/17 20:45 Ur Leukocyte Esterase Neg (Negative) 07/06/17 20:45 Urine WBC (Auto) 2.0 /HPF (0.0-6.0) 07/06/17 20:45 Urine RBC (Auto) 2.0 /HPF (0.0-6.0) 07/06/17 20:45 U Epithel Cells (Auto) 1.0 /HPF (0-13.0) 07/06/17 20:45 Urine Mucus Few /HPF 07/06/17 20:45 Salicylates < 0.3 mg/dL (2.8-20.0) L 07/06/17 21:29 Urine Opiates Screen Presumptive negative 07/06/17 20:45 Urine Methadone Screen Presumptive negative 07/06/17 20:45 Acetaminophen < 15.0 ug/mL (10.0-30.0) 07/09/17 00:22 Ur Barbiturates Screen Presumptive negative 07/06/17 20:45 Ur Phencyclidine Scrn Presumptive negative 07/06/17 20:45 Ur Amphetamines Screen Presumptive negative 07/06/17 20:45 U Benzodiazepines Scrn Presumptive negative 07/06/17 20:45 Urine Cocaine Screen Presumptive negative 07/06/17 20:45 U Marijuana (THC) Screen Presumptive negative 07/06/17 20:45 Drugs of Abuse Note Disclamer 07/06/17 20:45 Plasma/Serum Alcohol < 0.01 gm% (0-0.07) 07/06/17 21:29
[2017-07-09] MEDS: PROzac PO SCH (10:57)
[2017-07-09] MEDS: ABILIFY PO SCH (10:58)
[2017-07-09] MEDS: HEPARIN SUB-Q SCH ×2 (10:59→21:21)
[2017-07-09 11:09] LABS: BUN/Creatinine Ratio 21.42; Blood Urea Nitrogen 15 mg/dL (7-17); Calcium 7.8 mg/dL (8.4-10.2); Carbon Dioxide 21 mmol/L (22-30); Glucose 203 mg/dL (65-100)
[2017-07-09 11:10] LABS: Anion Gap 18 mmol/L; Chloride 99.9 mmol/L (98-107); Potassium 4.1 mmol/L (3.6-5.0); Sodium 135 mmol/L (137-145)
--- NOTE | 2017-07-09 15:09 | Progress Note ---
Subjective - Reason for Consult Consult date: 07/09/17 Reason for consult: Psychiatry Follow-up - Chief Complaint Chief complaint: "I have pain" The patient is a 56-year-old female presenting with a chief complaint of a toothache and a overdose on Tylenol. Today patient is calm and cooperative, but still withdrawn during the assessment. She stated, "Taking all them Tylenol may have been a mistake." She stated having generalized pain, not a toothache today. She would not elaborate on the overdose when asked. She did admit to getting rest last night. She denies SI/HI's and AVH's. She rate her depression 5 /10, with 10 being the worse. She denies any side effects of her medications. Mental Status Exam - Vital signs Last Vital Signs Temp 99.2 F 07/09/17 12:16 Pulse 84 07/09/17 12:16 Resp 20 07/09/17 12:16 BP 144/78 07/09/17 12:16 Pulse Ox 91 07/09/17 12:16 - Exam Narrative exam: MSE: Appearance: calm, cooperative Behavior: poor eye contact Speech: regular rate and tone Mood: "okay" withdrawn Affect: congruent to mood Thought Process: circumstantial Thought Content: denies SI/HI's and AVH's Motor Activity: ambulatory Cognition: A/Ox 3 Insight: variable Judgment: variable Assessment and Plan Impression: Historical Dx: Depression. MDD severe type. Today patient is calm, cooperative, but still withdrawn during the assessment. Overdose on Tylenol. LF 's elevated. Recommendation/Plan: Continue 1013 with placement to inpatient psy services once medically clear. Continue Prozac 20 mg PO daily for depression, Trazodone 50 mg PO HS for sleep, and Abilify 5 mg PO for adjunct treatment (depression). Discussed with patient how important it is to monitor her glucose since she takes Abilify (possible metabolic side effects). Discussed possible suicidality/ medication induced abby reference Prozac/Trazodone.
[2017-07-09] MEDS: DESYREL PO SCH (21:16)
[2017-07-10] MEDS: ZOFRAN IV PRN (00:35)
[2017-07-10] MEDS: DILAUDID IM PRN ×4 (00:35→18:48)
[2017-07-10] MEDS: TRIMOX PO SCH ×3 (06:20→21:52)
[2017-07-10 06:52] LABS: INR 1.25 (0.87-1.13)
[2017-07-10 07:02] LABS: Albumin/Globulin Ratio 0.8 %; Bilirubin,Direct 0.7 mg/dL (0-0.2); Bilirubin,Indirect 0.4 mg/dL; Bilirubin,Total 1.1 mg/dL (0.1-1.2); Total Protein 6.7 g/dL (6.3-8.2)
--- NOTE | 2017-07-10 10:44 | Progress Note ---
Assessment and Plan Assessment and plan: The patient is a 56-year-old female presenting with a chief complaint toothache and overdose. The patient states she's had pain to the left lower jaw for the past 3-4 days. The patient states medications at home helping. The patient admits to taking 40 extended release Tylenol 650 mg tablets at one time yesterday at 20:00. When asked if she was trying to harm herself patient does not respond immediately and hesitates approximately 3 seconds while making eye contact and then states "no because I've taken that much before." Patient says she developed some nausea today Tylenol poisoning tylenol level trending down, continue IVF, Poison control input appreciated finish this bag of N- Acetylcystein and IVF recheck LFTS tomorrow Acute Toxic hepatitis -due to tylenol toxicity, continue to monitor, LFTs now improved Suicidal attempt continue 1013 mental health consult appreciated may need inpatient psych placement Tooth ache/dental carries abx and pain meds dvt ppx lovenox History Interval history: Patient has been calm and cooperative, no events Hospitalist Physical - Physical exam Narrative exam: General.: Appears well, no distress, nontoxic HEENT:poor dentition Neck: supple Cardiac: S1-S2 heard Lungs: clear to auscultation bilaterally Abdomen: soft , nontender, nondistended, bowel sounds positive Extremities: no edema clubbing or cyanosis Skin: no rash or lesions Neurologic: no gross focal deficits Psych: inappropriate behavior, laughing inappropriately, lacks insight - Constitutional Vitals: Temp Pulse Resp BP Pulse Ox 98.5 F 67 20 126/72 89 07/10/17 09:03 07/10/17 09:00 07/10/17 09:00 07/10/17 09:00 07/10/17 09:00 Results - Labs CBC & Chem 7: 07/06/17 21:29 07/09/17 10:17 Labs: Laboratory Last Values WBC 14.4 K/mm3 (4.5-11.0) H 07/06/17 21:29 RBC 4.88 M/mm3 (3.65-5.03) 07/06/17 21:29 Hgb 12.2 gm/dl (10.1-14.3) 07/06/17 21:29 Hct 39.0 % (30.3-42.9) 07/06/17 21:29 MCV 80 fl (79-97) 07/06/17 21: MCH 25 pg (28-32) L 07/06/17 21: MCHC 31 % (30-34) 07/06/17 21: RDW 15.7 % (13.2-15.2) H 07/06/17 21:29 Plt Count 359 K/mm3 (140-440) 07/06/17 21: Lymph % (Auto) 12.2 % (13.4-35.0) L 07/06/17 21: [place] % (Auto) 2.8 % (0.0-7.3) 07/06/17 21: Eos % (Auto) 0.6 % (0.0-4.3) 07/06/17 21: Baso % (Auto) 0.2 % (0.0-1.8) 07/06/17 21: Lymph # 1.8 K/mm3 (1.2-5.4) 07/06/17 21: [place] # 0.4 K/mm3 (0.0-0.8) 07/06/17 21: Eos # 0.1 K/mm3 (0.0-0.4) 07/06/17 21: Baso # 0.0 K/mm3 (0.0-0.1) 07/06/17 21: Seg Neutrophils % 84.2 % (40.0-70.0) H 07/06/17 21: Seg Neutrophils # 12.1 K/mm3 (1.8-7.7) H 07/06/17 21:29 PT 16.4 Sec. (12.2-14.9) H 07/10/17 06:29 INR 1.25 (0.87-1.13) H 07/10/17 06:29 APTT 29.9 Sec. (24.2-36.6) 07/06/17 21:29 Sodium 135 mmol/L (137-145) L 07/09/17 10:17 Potassium 4.1 mmol/L (3.6-5.0) 07/09/17 10:17 Chloride 99.9 mmol/L (98-107) 07/09/17 10:17 Carbon Dioxide 21 mmol/L (22-30) L 07/09/17 10:17 Anion Gap 18 mmol/L 07/09/17 10:17 BUN 15 mg/dL (7-17) 07/09/17 10:17 Creatinine 0.7 mg/dL (0.7-1.2) 07/09/17 10:17 Estimated GFR > 60 ml/min 07/09/17 10:17 BUN/Creatinine Ratio 21.42 % 07/09/17 10:17 Glucose 203 mg/dL (65-100) H 07/09/17 10:17 POC Glucose 265 (70-105) H 07/09/17 21:06 Lactic Acid 2.50 mmol/L (0.7-2.0) H* 07/06/17 23:42 Calcium 7.8 mg/dL (8.4-10.2) L 07/09/17 10:17 Total Bilirubin 1.10 mg/dL (0.1-1.2) 07/10/17 06:33 Direct Bilirubin 0.7 mg/dL (0-0.2) H 07/10/17 06:33 Indirect Bilirubin 0.4 mg/dL 07/10/17 06:33 AST 1389 units/L (5-40) H 07/10/17 06:33 ALT 3252 units/L (7-56) H 07/10/17 06:33 Alkaline Phosphatase 195 units/L (35-129) H 07/10/17 06:33 Total Protein 6.7 g/dL (6.3-8.2) 07/10/17 06:33 Albumin 3.0 g/dL (3.9-5) L 07/10/17 06:33 Albumin/Globulin Ratio 0.8 % 07/10/17 06:33 Urine Color Yellow (Yellow) 07/06/17 20:45 Urine Turbidity Clear (Clear) 07/06/17 20:45 Urine pH 5.0 (5.0-7.0) 07/06/17 20:45 Ur Specific [place] 1.038 (1.003-1.030) H 07/06/17 20:45 Urine Protein 30 mg/dl mg/dL (Negative) 07/06/17 20:45 Urine Glucose (UA) 50 mg/dL (Negative) 07/06/17 20:45 Urine Ketones Neg mg/dL (Negative) 07/06/17 20:45 Urine Blood Neg (Negative) 07/06/17 20:45 Urine Nitrite Neg (Negative) 07/06/17 20:45 Urine Bilirubin Neg (Negative) 07/06/17 20:45 Urine Urobilinogen < 2.0 mg/dL (<2.0) 07/06/17 20:45 Ur Leukocyte Esterase Neg (Negative) 07/06/17 20:45 Urine WBC (Auto) 2.0 /HPF (0.0-6.0) 07/06/17 20:45 Urine RBC (Auto) 2.0 /HPF (0.0-6.0) 07/06/17 20:45 U Epithel Cells (Auto) 1.0 /HPF (0-13.0) 07/06/17 20:45 Urine Mucus Few /HPF 07/06/17 20:45 Salicylates < 0.3 mg/dL (2.8-20.0) L 07/06/17 21:29 Urine Opiates Screen Presumptive negative 07/06/17 20:45 Urine Methadone Screen Presumptive negative 07/06/17 20:45 Acetaminophen < 15.0 ug/mL (10.0-30.0) 07/09/17 00:22 Ur Barbiturates Screen Presumptive negative 07/06/17 20:45 Ur Phencyclidine Scrn Presumptive negative 07/06/17 20:45 Ur Amphetamines Screen Presumptive negative 07/06/17 20:45 U Benzodiazepines Scrn Presumptive negative 07/06/17 20:45 Urine Cocaine Screen Presumptive negative 07/06/17 20:45 U Marijuana (THC) Screen Presumptive negative 07/06/17 20:45 Drugs of Abuse Note Disclamer 07/06/17 20:45 Plasma/Serum Alcohol < 0.01 gm% (0-0.07) 07/06/17 21:29
[2017-07-10] MEDS: ABILIFY PO SCH (10:47)
[2017-07-10] MEDS: HEPARIN SUB-Q SCH ×2 (10:49→21:53)
[2017-07-10] MEDS: PROzac PO SCH (12:43)
[2017-07-10] MEDS: DESYREL PO SCH (21:53)
[2017-07-11] MEDS: DILAUDID IM PRN ×3 (03:35→20:17)
[2017-07-11] MEDS: TRIMOX PO SCH ×3 (06:23→21:42)
[2017-07-11 09:28] LABS: Basophils % (Auto) 0.5 % (0.0-1.8); Eosinophils % (Auto) 6.3 % (0.0-4.3); Hematocrit 33.2 % (30.3-42.9); Hemoglobin 10.4 gm/dl (10.1-14.3); Mean Corpuscular HGB Conc 31 % (30-34); Mean Corpuscular Volume 81 fl (79-97); Platelet Count 199 K/mm3 (140-440); Red Blood Count 4.12 M/mm3 (3.65-5.03); Red Cell Distribution Width 16.1 % (13.2-15.2); White Blood Count 5.6 K/mm3 (4.5-11.0)
[2017-07-11 09:33] LABS: Mean Corpuscular Hemoglobin 25 pg (28-32)
[2017-07-11 09:37] LABS: Albumin 2.7 g/dL (3.9-5); Albumin/Globulin Ratio 0.8 %; Alkaline Phosphatase 206 units/L (35-129); Anion Gap 15 mmol/L; BUN/Creatinine Ratio 14.28; Blood Urea Nitrogen 10 mg/dL (7-17); Carbon Dioxide 24 mmol/L (22-30); Chloride 101.5 mmol/L (98-107); Glucose 149 mg/dL (65-100); INR 1.05 (0.87-1.13); Potassium 3.5 mmol/L (3.6-5.0); Sodium 137 mmol/L (137-145); Total Protein 6.3 g/dL (6.3-8.2)
[2017-07-11 09:38] LABS: Partial Thromboplastin Time 30.9 Sec. (24.2-36.6)
[2017-07-11 09:49] LABS: Alanine Aminotransferase 1813 units/L (7-56)
[2017-07-11] MEDS ORDERED: K-DUR PO ONE (10:00)
[2017-07-11] MEDS: ABILIFY PO SCH (11:17)
[2017-07-11] MEDS: PROzac PO SCH (11:18)
[2017-07-11] MEDS: HEPARIN SUB-Q SCH ×2 (11:18→21:42)
--- NOTE | 2017-07-11 12:24 | Progress Note ---
Assessment and Plan Assessment and plan: The patient is a 56-year-old female presenting with a chief complaint toothache and overdose. The patient states she's had pain to the left lower jaw for the past 3-4 days. The patient states medications at home helping. The patient admits to taking 40 extended release Tylenol 650 mg tablets at one time yesterday at 20:00. When asked if she was trying to harm herself patient does not respond immediately and hesitates approximately 3 seconds while making eye contact and then states "no because I've taken that much before." Patient says she developed some nausea today Tylenol poisoning tylenol level trending down, continue IVF, Poison control input appreciated She has received N- Acetylcystein and IVF LFTs improved today. Acute Toxic hepatitis -due to tylenol toxicity, continue to monitor, LFTs now improved Suicidal attempt continue 1013 mental health consult appreciated may need inpatient psych placement Tooth ache/dental carries abx and pain meds dvt ppx lovenox This patient is medically optimized for placement in acute psych facility History Interval history: Patient has been calm and cooperative, no events Hospitalist Physical - Physical exam Narrative exam: General.: Appears well, no distress, nontoxic HEENT:poor dentition Neck: supple Cardiac: S1-S2 heard Lungs: clear to auscultation bilaterally Abdomen: soft , nontender, nondistended, bowel sounds positive Extremities: no edema clubbing or cyanosis Skin: no rash or lesions Neurologic: no gross focal deficits Psych: inappropriate behavior, laughing inappropriately, lacks insight - Constitutional Vitals: Temp Pulse Resp BP Pulse Ox 98.0 F 66 20 116/54 93 07/11/17 08:00 07/11/17 10:00 07/11/17 08:00 07/11/17 08:00 07/11/17 08:00 Results - Labs CBC & Chem 7: 07/11/17 09:05 07/11/17 09:05 Labs: Laboratory Last Values WBC 5.6 K/mm3 (4.5-11.0) 07/11/17 09:05 RBC 4.12 M/mm3 (3.65-5.03) 07/11/17 09:05 Hgb 10.4 gm/dl (10.1-14.3) 07/11/17 09:05 Hct 33.2 % (30.3-42.9) 07/11/17 09:05 MCV 81 fl (79-97) 07/11/17 09:05 MCH 25 pg (28-32) L 07/11/17 09:05 MCHC 31 % (30-34) 07/11/17 09:05 RDW 16.1 % (13.2-15.2) H 07/11/17 09:05 Plt Count 199 K/mm3 (140-440) 07/11/17 09:05 Lymph % (Auto) 22.6 % (13.4-35.0) 07/11/17 09:05 [place] % (Auto) 7.9 % (0.0-7.3) H 07/11/17 09:05 Eos % (Auto) 6.3 % (0.0-4.3) H 07/11/17 09:05 Baso % (Auto) 0.5 % (0.0-1.8) 07/11/17 09:05 Lymph # 1.3 K/mm3 (1.2-5.4) 07/11/17 09:05 [place] # 0.4 K/mm3 (0.0-0.8) 07/11/17 09:05 Eos # 0.4 K/mm3 (0.0-0.4) 07/11/17 09:05 Baso # 0.0 K/mm3 (0.0-0.1) 07/11/17 09:05 Seg Neutrophils % 62.7 % (40.0-70.0) 07/11/17 09:05 Seg Neutrophils # 3.5 K/mm3 (1.8-7.7) 07/11/17 09:05 PT 14.2 Sec. (12.2-14.9) 07/11/17 09:05 INR 1.05 (0.87-1.13) 07/11/17 09:05 APTT 30.9 Sec. (24.2-36.6) 07/11/17 09:05 Sodium 137 mmol/L (137-145) 07/11/17 09:05 Potassium 3.5 mmol/L (3.6-5.0) L 07/11/17 09:05 Chloride 101.5 mmol/L (98-107) 07/11/17 09:05 Carbon Dioxide 24 mmol/L (22-30) 07/11/17 09:05 Anion Gap 15 mmol/L 07/11/17 09:05 BUN 10 mg/dL (7-17) 07/11/17 09:05 Creatinine 0.7 mg/dL (0.7-1.2) 07/11/17 09:05 Estimated GFR > 60 ml/min 07/11/17 09:05 BUN/Creatinine Ratio 14.28 % 07/11/17 09:05 Glucose 149 mg/dL (65-100) H 07/11/17 09:05 POC Glucose 173 (70-105) H 07/11/17 12:09 Lactic Acid 2.50 mmol/L (0.7-2.0) H* 07/06/17 23:42 Calcium 8.0 mg/dL (8.4-10.2) L 07/11/17 09:05 Total Bilirubin 1.10 mg/dL (0.1-1.2) 07/11/17 09:05 Direct Bilirubin 0.7 mg/dL (0-0.2) H 07/10/17 06:33 Indirect Bilirubin 0.4 mg/dL 07/10/17 06:33 AST 260 units/L (5-40) H 07/11/17 09:05 ALT 1813 units/L (7-56) H 07/11/17 09:05 Alkaline Phosphatase 206 units/L (35-129) H 07/11/17 09:05 Total Protein 6.3 g/dL (6.3-8.2) 07/11/17 09:05 Albumin 2.7 g/dL (3.9-5) L 07/11/17 09:05 Albumin/Globulin Ratio 0.8 % 07/11/17 09:05 Urine Color Yellow (Yellow) 07/06/17 20:45 Urine Turbidity Clear (Clear) 07/06/17 20:45 Urine pH 5.0 (5.0-7.0) 07/06/17 20:45 Ur Specific [place] 1.038 (1.003-1.030) H 07/06/17 20:45 Urine Protein 30 mg/dl mg/dL (Negative) 07/06/17 20:45 Urine Glucose (UA) 50 mg/dL (Negative) 07/06/17 20:45 Urine Ketones Neg mg/dL (Negative) 07/06/17 20:45 Urine Blood Neg (Negative) 07/06/17 20:45 Urine Nitrite Neg (Negative) 07/06/17 20:45 Urine Bilirubin Neg (Negative) 07/06/17 20:45 Urine Urobilinogen < 2.0 mg/dL (<2.0) 07/06/17 20:45 Ur Leukocyte Esterase Neg (Negative) 07/06/17 20:45 Urine WBC (Auto) 2.0 /HPF (0.0-6.0) 07/06/17 20:45 Urine RBC (Auto) 2.0 /HPF (0.0-6.0) 07/06/17 20:45 U Epithel Cells (Auto) 1.0 /HPF (0-13.0) 07/06/17 20:45 Urine Mucus Few /HPF 07/06/17 20:45 Salicylates < 0.3 mg/dL (2.8-20.0) L 07/06/17 21:29 Urine Opiates Screen Presumptive negative 07/06/17 20:45 Urine Methadone Screen Presumptive negative 07/06/17 20:45 Acetaminophen < 15.0 ug/mL (10.0-30.0) 07/09/17 00:22 Ur Barbiturates Screen Presumptive negative 07/06/17 20:45 Ur Phencyclidine Scrn Presumptive negative 07/06/17 20:45 Ur Amphetamines Screen Presumptive negative 07/06/17 20:45 U Benzodiazepines Scrn Presumptive negative 07/06/17 20:45 Urine Cocaine Screen Presumptive negative 07/06/17 20:45 U Marijuana (THC) Screen Presumptive negative 07/06/17 20:45 Drugs of Abuse Note Disclamer 07/06/17 20:45 Plasma/Serum Alcohol < 0.01 gm% (0-0.07) 07/06/17 21:29
[2017-07-11] MEDS: DESYREL PO SCH (21:42)
[2017-07-12] MEDS: TRIMOX PO SCH ×3 (06:07→21:32)
[2017-07-12] MEDS: NACL 0.9% 1000 ML 1,000 ML IV SCH (06:23)
--- NOTE | 2017-07-12 09:13 | Query- Nutrition ---
Dear ____Karl Date:____07/12/17 Stack Attendant/CDS:____Jeffry Phone#:___[phone] Exercise your independent professional judgment when responding to query. Questions asked do not imply a particular answer is desired or expected. We greatly appreciate your clarification on this issue. Clinical Documentation States: 56 year old female was admitted on 07/07/17. The Hospitalist progress note ( Dr. Barajas 07/11/17) states " The patient is a 56 -year-old female presenting with a chief complaint toothache and overdose. Tylenol poisoning Acute Toxic hepatitis Suicidal attempt " Clinical Findings Show: Albumin: 2.7 Please select the most appropriate option 3 [] Mild Malnutrition [] Mild - Moderate Malnutrition [x] Moderate - Severe Malnutrition [] Severe Malnutrition Serum Albumin 2.8 to 3.4 g/dl or Pre-albumin 5 to 17 mg/dl1,2 Inadequate nutritional intake1,2,3,4 NPO > 5 days Weight loss: 5% in 1 month or 7.5% in 3 months or 10% in 6 months1, 3,4 BMI 16 to 18.4 or Weight <90% of ideal body weight1,2,3,4 Serum Albumin < 2.8 g/ dl1,2 Lymphocytes < 1500/ L2 Inadequate nutritional intake3, high stress e.g. major trauma, sepsis,pancreatitis, nam etc. Decubitus ulcers1,2, , skin breakdown2, easy hair pluckability2 Weight <80% standard for height2 Triceps skin fold <3 mm2 Mid-arm muscle circumference <15 cm2 Creatinine-height index <60% standard2 [ ] Cachexia [ ] Emaciated w/Malnutrition [ ] Other: [ ] Unable to determine [ ] Comment/Explanation: Present on Admission: [ x] Yes (Y) [ ] Clinically undeterminable (W) [ ] No (N) Please also document response in your Progress Notes and/or Discharge Summary and indicate if the condition was present on admission. MTDD
[2017-07-12] MEDS: ABILIFY PO SCH (09:25)
[2017-07-12] MEDS: HEPARIN SUB-Q SCH ×2 (09:26→21:32)
[2017-07-12] MEDS: PROzac PO SCH (09:30)
--- NOTE | 2017-07-12 11:21 | Progress Note ---
Subjective - Reason for Consult Consult date: 07/12/17 Reason for consult: Psychiatry Follow-up - Chief Complaint Chief complaint: "My tooth hurt" The patient is a 56-year-old female presenting with a chief complaint of a toothache and a overdose on Tylenol. Today patient is calm and cooperative during the assessment. She stated that her tooth still hurt. When asked about taking 40 Tylenol pills to kill herself, she stated, "I was in pain that's all. " She would not elaborate more about her actions. She denies SI/HI's and AVH's. She rate her depression 5/10, with 10 being the worse. She denies any side effects of her medication. Mental Status Exam - Vital signs Last Vital Signs Temp 98.5 F 07/12/17 09:30 Pulse 70 07/12/17 08:47 Resp 20 07/12/17 08:47 BP 131/55 07/12/17 08:47 Pulse Ox 95 07/12/17 08:47 - Exam Narrative exam: MSE: Appearance: calm, cooperative Behavior: poor eye contact Speech: regular rate and tone Mood: "okay" Affect: congruent to mood Thought Process: circumstantial Thought Content: denies SI/HI's and AVH's Motor Activity: ambulatory Cognition: A/Ox 3 Insight: variable Judgment: variable Assessment and Plan Impression: Historical Dx: Depression. MDD severe type. Today patient is calm and cooperative during the assessment. Overdose on Tylenol. LF's trending down. She minimizes her actions. Recommendation/Plan: Continue 1013 with pending placement to inpatient psy services. Continue Prozac 20 mg PO daily for depression, Trazodone 50 mg PO HS for sleep, and Abilify 5 mg PO for adjunct treatment (depression). Discussed with patient how important it is to monitor her glucose since she takes Abilify (possible metabolic side effects). Discussed possible suicidality/medication induced abby reference Prozac/Trazodone.
[2017-07-12] MEDS: DILAUDID IM PRN ×2 (12:57→21:32)
--- NOTE | 2017-07-12 13:14 | Progress Note ---
Assessment and Plan Assessment and plan: The patient is a 56-year-old female presenting with a chief complaint toothache and overdose. The patient states she's had pain to the left lower jaw for the past 3-4 days. The patient states medications at home helping. The patient admits to taking 40 extended release Tylenol 650 mg tablets at one time yesterday at 20:00. When asked if she was trying to harm herself patient does not respond immediately and hesitates approximately 3 seconds while making eye contact and then states "no because I've taken that much before." Patient says she developed some nausea today Tylenol poisoning tylenol level trending down, continue IVF, Poison control input appreciated She has received N- Acetylcystein and IVF LFTs improved today. Acute Toxic hepatitis -due to tylenol toxicity, continue to monitor, LFTs now improved Suicidal attempt continue 1013 mental health consult appreciated may need inpatient psych placement Tooth ache/dental carries abx and pain meds dvt ppx lovenox This patient is medically optimized for placement in acute psych facility History Interval history: Patient has been calm and cooperative, no events Hospitalist Physical - Physical exam Narrative exam: General.: Appears well, no distress, nontoxic HEENT:poor dentition Neck: supple Cardiac: S1-S2 heard Lungs: clear to auscultation bilaterally Abdomen: soft , nontender, nondistended, bowel sounds positive Extremities: no edema clubbing or cyanosis Skin: no rash or lesions Neurologic: no gross focal deficits Psych: inappropriate behavior, laughing inappropriately, lacks insight - Constitutional Vitals: Temp Pulse Resp BP Pulse Ox 98.4 F 80 20 148/76 92 07/12/17 12:14 07/12/17 12:14 07/12/17 12:14 07/12/17 12:14 07/12/17 12:14 Results - Labs CBC & Chem 7: 07/11/17 09:05 07/11/17 09:05 Labs: Laboratory Last Values WBC 5.6 K/mm3 (4.5-11.0) 07/11/17 09:05 RBC 4.12 M/mm3 (3.65-5.03) 07/11/17 09:05 Hgb 10.4 gm/dl (10.1-14.3) 07/11/17 09:05 Hct 33.2 % (30.3-42.9) 07/11/17 09:05 MCV 81 fl (79-97) 07/11/17 09:05 MCH 25 pg (28-32) L 07/11/17 09:05 MCHC 31 % (30-34) 07/11/17 09:05 RDW 16.1 % (13.2-15.2) H 07/11/17 09:05 Plt Count 199 K/mm3 (140-440) 07/11/17 09:05 Lymph % (Auto) 22.6 % (13.4-35.0) 07/11/17 09:05 [place] % (Auto) 7.9 % (0.0-7.3) H 07/11/17 09:05 Eos % (Auto) 6.3 % (0.0-4.3) H 07/11/17 09:05 Baso % (Auto) 0.5 % (0.0-1.8) 07/11/17 09:05 Lymph # 1.3 K/mm3 (1.2-5.4) 07/11/17 09:05 [place] # 0.4 K/mm3 (0.0-0.8) 07/11/17 09:05 Eos # 0.4 K/mm3 (0.0-0.4) 07/11/17 09:05 Baso # 0.0 K/mm3 (0.0-0.1) 07/11/17 09:05 Seg Neutrophils % 62.7 % (40.0-70.0) 07/11/17 09:05 Seg Neutrophils # 3.5 K/mm3 (1.8-7.7) 07/11/17 09:05 PT 14.2 Sec. (12.2-14.9) 07/11/17 09:05 INR 1.05 (0.87-1.13) 07/11/17 09:05 APTT 30.9 Sec. (24.2-36.6) 07/11/17 09:05 Sodium 137 mmol/L (137-145) 07/11/17 09:05 Potassium 3.5 mmol/L (3.6-5.0) L 07/11/17 09:05 Chloride 101.5 mmol/L (98-107) 07/11/17 09:05 Carbon Dioxide 24 mmol/L (22-30) 07/11/17 09:05 Anion Gap 15 mmol/L 07/11/17 09:05 BUN 10 mg/dL (7-17) 07/11/17 09:05 Creatinine 0.7 mg/dL (0.7-1.2) 07/11/17 09:05 Estimated GFR > 60 ml/min 07/11/17 09:05 BUN/Creatinine Ratio 14.28 % 07/11/17 09:05 Glucose 149 mg/dL (65-100) H 07/11/17 09:05 POC Glucose 153 (70-105) H 07/11/17 22:12 Lactic Acid 2.50 mmol/L (0.7-2.0) H* 07/06/17 23:42 Calcium 8.0 mg/dL (8.4-10.2) L 07/11/17 09:05 Total Bilirubin 1.10 mg/dL (0.1-1.2) 07/11/17 09:05 Direct Bilirubin 0.7 mg/dL (0-0.2) H 07/10/17 06:33 Indirect Bilirubin 0.4 mg/dL 07/10/17 06:33 AST 260 units/L (5-40) H 07/11/17 09:05 ALT 1813 units/L (7-56) H 07/11/17 09:05 Alkaline Phosphatase 206 units/L (35-129) H 07/11/17 09:05 Total Protein 6.3 g/dL (6.3-8.2) 07/11/17 09:05 Albumin 2.7 g/dL (3.9-5) L 07/11/17 09:05 Albumin/Globulin Ratio 0.8 % 07/11/17 09:05 Urine Color Yellow (Yellow) 07/06/17 20:45 Urine Turbidity Clear (Clear) 07/06/17 20:45 Urine pH 5.0 (5.0-7.0) 07/06/17 20:45 Ur Specific [place] 1.038 (1.003-1.030) H 07/06/17 20:45 Urine Protein 30 mg/dl mg/dL (Negative) 07/06/17 20:45 Urine Glucose (UA) 50 mg/dL (Negative) 07/06/17 20:45 Urine Ketones Neg mg/dL (Negative) 07/06/17 20:45 Urine Blood Neg (Negative) 07/06/17 20:45 Urine Nitrite Neg (Negative) 07/06/17 20:45 Urine Bilirubin Neg (Negative) 07/06/17 20:45 Urine Urobilinogen < 2.0 mg/dL (<2.0) 07/06/17 20:45 Ur Leukocyte Esterase Neg (Negative) 07/06/17 20:45 Urine WBC (Auto) 2.0 /HPF (0.0-6.0) 07/06/17 20:45 Urine RBC (Auto) 2.0 /HPF (0.0-6.0) 07/06/17 20:45 U Epithel Cells (Auto) 1.0 /HPF (0-13.0) 07/06/17 20:45 Urine Mucus Few /HPF 07/06/17 20:45 Salicylates < 0.3 mg/dL (2.8-20.0) L 07/06/17 21:29 Urine Opiates Screen Presumptive negative 07/06/17 20:45 Urine Methadone Screen Presumptive negative 07/06/17 20:45 Acetaminophen < 15.0 ug/mL (10.0-30.0) 07/09/17 00:22 Ur Barbiturates Screen Presumptive negative 07/06/17 20:45 Ur Phencyclidine Scrn Presumptive negative 07/06/17 20:45 Ur Amphetamines Screen Presumptive negative 07/06/17 20:45 U Benzodiazepines Scrn Presumptive negative 07/06/17 20:45 Urine Cocaine Screen Presumptive negative 07/06/17 20:45 U Marijuana (THC) Screen Presumptive negative 07/06/17 20:45 Drugs of Abuse Note Disclamer 07/06/17 20:45 Plasma/Serum Alcohol < 0.01 gm% (0-0.07) 07/06/17 21:29
[2017-07-12 14:23] LABS: Albumin 2.9 g/dL (3.9-5); Albumin/Globulin Ratio 0.8 %; Bilirubin,Direct 0.5 mg/dL (0-0.2); Bilirubin,Indirect 0.2 mg/dL; Bilirubin,Total 0.7 mg/dL (0.1-1.2); Total Protein 6.7 g/dL (6.3-8.2)
[2017-07-12] MEDS: DESYREL PO SCH (21:32)
[2017-07-13] MEDS: TRIMOX PO SCH ×3 (06:17→22:40)
[2017-07-13] MEDS: NACL 0.9% 1000 ML 1,000 ML IV SCH ×2 (06:18→15:47)
--- NOTE | 2017-07-13 08:30 | Progress Note ---
Assessment and Plan Assessment and plan: The patient is a 56-year-old female presenting with a chief complaint toothache and overdose. The patient states she's had pain to the left lower jaw for the past 3-4 days. The patient states medications at home helping. The patient admits to taking 40 extended release Tylenol 650 mg tablets at one time yesterday at 20:00. When asked if she was trying to harm herself patient does not respond immediately and hesitates approximately 3 seconds while making eye contact and then states "no because I've taken that much before." Patient says she developed some nausea today Tylenol poisoning tylenol level trending down, continue IVF, Poison control input appreciated She has received N- Acetylcystein and IVF LFTs improved today. Acute Toxic hepatitis -due to tylenol toxicity, continue to monitor, LFTs now improved AST 87 ALT 1092 , -Discussed with Posion control, Will rechec INR to ensure ALT decreased to less than 1000 Suicidal attempt continue 1013 mental health consult appreciated may need inpatient psych placement Tooth ache/dental carries abx and pain meds dvt ppx lovenox This patient is medically optimized for placement in acute psych facility History Interval history: Patient seen and examined and no acute distress wanted to know when she can go home Hospitalist Physical - Physical exam Narrative exam: VITAL SIGNS: Reviewed. GENERAL: The patient appeared well nourished and normally developed. Obese Vital signs as documented. HEAD: No signs of head trauma. EYES: Pupils are equal. Extraocular motions intact. EARS: Hearing grossly intact. MOUTH: Oropharynx is normal. Poor dentition NECK: No adenopathy, no JVD. CHEST: Chest with clear breath sounds bilaterally. No wheezes, rales, or rhonchi. CARDIAC: Regular rate and rhythm. S1 and S2, without murmurs, gallops, or rubs. VASCULAR: No Edema. Peripheral pulses normal and equal in all extremities. ABDOMEN: Soft, without detectable tenderness. No sign of distention. No rebound or guarding, and no masses palpated. Bowel Sounds normal. MUSCULOSKELETAL: Good range of motion of all major joints. Extremities without clubbing, cyanosis or edema. NEUROLOGIC EXAM: Alert and oriented x 3. No focal sensory or strength deficits. Speech normal. Follows commands. PSYCHIATRIC: Mood normal. SKIN: No rash or lesions. - Constitutional Vitals: Temp Pulse Resp BP Pulse Ox 98.3 F 72 20 130/64 94 07/13/17 04:40 07/13/17 04:40 07/13/17 04:40 07/13/17 04:40 07/13/17 04:40 Results - Labs CBC & Chem 7: 07/11/17 09:05 07/14/17 05:40 Labs: Laboratory Last Values WBC 5.6 K/mm3 (4.5-11.0) 07/11/17 09:05 RBC 4.12 M/mm3 (3.65-5.03) 07/11/17 09:05 Hgb 10.4 gm/dl (10.1-14.3) 07/11/17 09:05 Hct 33.2 % (30.3-42.9) 07/11/17 09:05 MCV 81 fl (79-97) 07/11/17 09:05 MCH 25 pg (28-32) L 07/11/17 09:05 MCHC 31 % (30-34) 07/11/17 09:05 RDW 16.1 % (13.2-15.2) H 07/11/17 09:05 Plt Count 199 K/mm3 (140-440) 07/11/17 09:05 Lymph % (Auto) 22.6 % (13.4-35.0) 07/11/17 09:05 [place] % (Auto) 7.9 % (0.0-7.3) H 07/11/17 09:05 Eos % (Auto) 6.3 % (0.0-4.3) H 07/11/17 09:05 Baso % (Auto) 0.5 % (0.0-1.8) 07/11/17 09:05 Lymph # 1.3 K/mm3 (1.2-5.4) 07/11/17 09:05 [place] # 0.4 K/mm3 (0.0-0.8) 07/11/17 09:05 Eos # 0.4 K/mm3 (0.0-0.4) 07/11/17 09:05 Baso # 0.0 K/mm3 (0.0-0.1) 07/11/17 09:05 Seg Neutrophils % 62.7 % (40.0-70.0) 07/11/17 09:05 Seg Neutrophils # 3.5 K/mm3 (1.8-7.7) 07/11/17 09:05 PT 14.2 Sec. (12.2-14.9) 07/11/17 09:05 INR 1.05 (0.87-1.13) 07/11/17 09:05 APTT 30.9 Sec. (24.2-36.6) 07/11/17 09:05 Sodium 137 mmol/L (137-145) 07/11/17 09:05 Potassium 3.5 mmol/L (3.6-5.0) L 07/11/17 09:05 Chloride 101.5 mmol/L (98-107) 07/11/17 09:05 Carbon Dioxide 24 mmol/L (22-30) 07/11/17 09:05 Anion Gap 15 mmol/L 07/11/17 09:05 BUN 10 mg/dL (7-17) 07/11/17 09:05 Creatinine 0.7 mg/dL (0.7-1.2) 07/11/17 09:05 Estimated GFR > 60 ml/min 07/11/17 09:05 BUN/Creatinine Ratio 14.28 % 07/11/17 09:05 Glucose 149 mg/dL (65-100) H 07/11/17 09:05 POC Glucose 158 (70-105) H 07/13/17 07:15 Lactic Acid 2.50 mmol/L (0.7-2.0) H* 07/06/17 23:42 Calcium 8.0 mg/dL (8.4-10.2) L 07/11/17 09:05 Total Bilirubin 0.70 mg/dL (0.1-1.2) 07/12/17 13:19 Direct Bilirubin 0.5 mg/dL (0-0.2) H 07/12/17 13:19 Indirect Bilirubin 0.2 mg/dL 07/12/17 13:19 AST 87 units/L (5-40) H 07/12/17 13:19 ALT 1092 units/L (7-56) H 07/12/17 13:19 Alkaline Phosphatase 236 units/L (35-129) H 07/12/17 13:19 Total Protein 6.7 g/dL (6.3-8.2) 07/12/17 13:19 Albumin 2.9 g/dL (3.9-5) L 07/12/17 13:19 Albumin/Globulin Ratio 0.8 % 07/12/17 13:19 Urine Color Yellow (Yellow) 07/06/17 20:45 Urine Turbidity Clear (Clear) 07/06/17 20:45 Urine pH 5.0 (5.0-7.0) 07/06/17 20:45 Ur Specific [place] 1.038 (1.003-1.030) H 07/06/17 20:45 Urine Protein 30 mg/dl mg/dL (Negative) 07/06/17 20:45 Urine Glucose (UA) 50 mg/dL (Negative) 07/06/17 20:45 Urine Ketones Neg mg/dL (Negative) 07/06/17 20:45 Urine Blood Neg (Negative) 07/06/17 20:45 Urine Nitrite Neg (Negative) 07/06/17 20:45 Urine Bilirubin Neg (Negative) 07/06/17 20:45 Urine Urobilinogen < 2.0 mg/dL (<2.0) 07/06/17 20:45 Ur Leukocyte Esterase Neg (Negative) 07/06/17 20:45 Urine WBC (Auto) 2.0 /HPF (0.0-6.0) 07/06/17 20:45 Urine RBC (Auto) 2.0 /HPF (0.0-6.0) 07/06/17 20:45 U Epithel Cells (Auto) 1.0 /HPF (0-13.0) 07/06/17 20:45 Urine Mucus Few /HPF 07/06/17 20:45 Salicylates < 0.3 mg/dL (2.8-20.0) L 07/06/17 21:29 Urine Opiates Screen Presumptive negative 07/06/17 20:45 Urine Methadone Screen Presumptive negative 07/06/17 20:45 Acetaminophen < 15.0 ug/mL (10.0-30.0) 07/09/17 00:22 Ur Barbiturates Screen Presumptive negative 07/06/17 20:45 Ur Phencyclidine Scrn Presumptive negative 07/06/17 20:45 Ur Amphetamines Screen Presumptive negative 07/06/17 20:45 U Benzodiazepines Scrn Presumptive negative 07/06/17 20:45 Urine Cocaine Screen Presumptive negative 07/06/17 20:45 U Marijuana (THC) Screen Presumptive negative 07/06/17 20:45 Drugs of Abuse Note Disclamer 07/06/17 20:45 Plasma/Serum Alcohol < 0.01 gm% (0-0.07) 07/06/17 21:29
--- NOTE | 2017-07-13 08:42 | Discharge Summary ---
Providers - Providers Date of Admission: 07/06/17 23:00 Attending physician: HUNTER LAZARO MD 07/07/17 15:11 Consult to Mental Health [CONS] Routine Reason For Exam: suicide attempt Place consult to:: [facility] Notified:: Yael HODGES Phone number called:: [phone] Was contact made?: Yes If yes, spoke with:: [facility] Time called:: 08:22 Primary care physician: SRINIVASA NG MD Hospitalization Condition: Stable Hospital course: The patient is a 56-year-old female presenting with a chief complaint toothache and overdose. The patient states she's had pain to the left lower jaw for the past 3-4 days. The patient states medications at home helping. The patient admits to taking 40 extended release Tylenol 650 mg tablets at one time yesterday at 20:00. When asked if she was trying to harm herself patient does not respond immediately and hesitates approximately 3 seconds while making eye contact and then states "no because I've taken that much before." Patient says she developed some nausea today Tylenol poisoning tylenol level trending down, continue IVF, Poison control input appreciated She has received N- Acetylcystein and IVF LFTs improved today. Acute Toxic hepatitis -due to tylenol toxicity, continue to monitor, LFTs now improved ast 1092, ALT 87 Suicidal attempt continue 1013 mental health consult appreciated may need inpatient psych placement Tooth ache/dental carries abx and pain meds dvt ppx lovenox This patient is medically optimized for placement in acute psych facility Disposition: DC/TX-65 PSY HOSP/PSY UNIT Time spent for discharge: 35 mins Exam - Constitutional Vitals: Temp Pulse Resp BP Pulse Ox 98.3 F 72 20 130/64 94 07/13/17 04:40 07/13/17 04:40 07/13/17 04:40 07/13/17 04:40 07/13/17 04:40 Plan Activity: advance as tolerated, fall precautions Diet: low cholesterol Follow up with: SRINIVASA NG MD [Primary Care Provider] - 3-5 Days
[2017-07-13] MEDS: ABILIFY PO SCH (09:23)
[2017-07-13] MEDS: PROzac PO SCH (09:23)
[2017-07-13] MEDS: HEPARIN SUB-Q SCH ×2 (09:23→22:39)
--- NOTE | 2017-07-13 10:10 | Progress Note ---
Subjective - Reason for Consult Consult date: 07/13/17 Reason for consult: Psychiatry Follow-up - Chief Complaint Chief complaint: "I am not suicidal" The patient is a 56-year-old female presenting with a chief complaint of a toothache and a overdose on Tylenol. Today patient is calm and cooperative during the assessment. She denies any a toothache today. She denies SI/HI's. She stated that she wasn't trying to kill herself when she took the 40 Tylenol pills. She denies AVH's and rate her depression 2/10, with 10 being the worse. She denies any side effects of her medications. Mental Status Exam - Vital signs Last Vital Signs Temp 98.0 F 07/13/17 08:36 Pulse 121 H 07/13/17 08:36 Resp 20 07/13/17 08:36 BP 148/72 07/13/17 08:36 Pulse Ox 93 07/13/17 08:36 - Exam Narrative exam: MSE: Appearance: calm, cooperative Behavior: regular eye contact Speech: regular rate and tone Mood: "okay" Affect: congruent to mood Thought Process: linear Thought Content: denies SI/HI's and AVH's Motor Activity: ambulatory Cognition: A/Ox 3 Insight: fair Judgment: fair Assessment and Plan Impression: Historical Dx: Depression. MDD severe type. Today patient is calm and cooperative during the assessment. Unintentional overdose. Patient is no threat to self. I. This screening and assessment is based on information collected from the following sources: II. SUICIDE RISK SCREENING (within last 30 days): A.) Suicidal thoughts/behaviors: Overdose SUICIDE RISK ASSESSMENT III. FACTORS THAT INCREASE RISK: A.) Demographic and Substance Use Factors: None B.) Current/Recent Factors (within past 3 months): Psychosocial/Environmental Factors: Unemployed Physical Illness: none Cognitive/Psychological Factors: None C.) Historical Factors: None D.) Diagnostic/Symptom/Treatment Factors: None E.) Acute Risk Factor Severity (DESC; MILD/MOD/SEVERE): Mild Other factors for this individual that increase risk: IV. FACTORS THAT DECREASE RISK: Resilience/Protective Factors: She want to learn how to cope with stress better Other factors for this individual that decrease risk: Patient denies a desire to harm self V. Clinician's Formulation of Risk and Determination of level of Care: This is a 56-year-old female who was experiencing pain (toothache) and took multiple tylenol pills. Patient is concerned that she caused harm to herself. She is seen by [facility] who manage her medications and provide outpatient psy services. Since being hospitalized, the patient has consistently denied the desire to harm herself. Additionally, she has become insightful about how to better address her current issue. Patient is not impaired by substance. She is able to take care of her ADLs and is not at imminent risk of harm to self or others. Patient does have the mental capacity to make decisions about her care. Recommended to the patient to continue outpatient psy services for her depression. Consequently, it is the opinion of the treatment team that the patient is at low risk of suicide and does not meet criteria to continue an involuntary psychiatric hold. Estimation of Imminent Risk: Low due to the above explanation. Determination of Level of Care based on Suicide Risk: Outpatient follow-up. Narrative description of clinical reasoning. (This must be completed on all patients): . Plan and Interventions based on Suicide Risk: This patient will likely be stepped down to an outpatient mental health center in the community upon discharge and follow-up within 7 days of her discharge from the hospital. VII. Discharge/After Hours Support Plan: Patient can return back to the ER, call 911 or crisis line if symptoms of depression, anxiety, suicidality return. Recommendation/Plan: Rescind 1013. Continue Prozac 20 mg PO daily for depression , Trazodone 50 mg PO HS for sleep, and Abilify 5 mg PO for adjunct treatment ( depression). Discussed with patient how important it is to monitor her glucose since she takes Abilify (possible metabolic side effects). Discussed possible suicidality/medication induced abby reference Prozac/Trazodone. Patient is seen by [facility] who manage her medications and outpatient psy services. [facility] in [place], [place] (assisted). Safety contract completed with patient.
[2017-07-13] MEDS: DILAUDID IM PRN (13:17)
[2017-07-13] MEDS: DESYREL PO SCH (22:40)
[2017-07-14] MEDS: DILAUDID IM PRN ×2 (01:10→11:25)
[2017-07-14] MEDS: NACL 0.9% 1000 ML 1,000 ML IV SCH (05:14)
[2017-07-14] MEDS: TRIMOX PO SCH (05:15)
[2017-07-14 07:13] LABS: INR 0.97 (0.87-1.13)
[2017-07-14 07:21] LABS: Alanine Aminotransferase 557 units/L (7-56); Albumin 2.9 g/dL (3.9-5); Albumin/Globulin Ratio 0.8 %; Alkaline Phosphatase 198 units/L (35-129); Anion Gap 16 mmol/L; BUN/Creatinine Ratio 17.14; Blood Urea Nitrogen 12 mg/dL (7-17); Calcium 8.1 mg/dL (8.4-10.2); Carbon Dioxide 25 mmol/L (22-30); Chloride 103.5 mmol/L (98-107); Glucose 161 mg/dL (65-100); Potassium 3.8 mmol/L (3.6-5.0); Sodium 141 mmol/L (137-145); Total Protein 6.4 g/dL (6.3-8.2)
[2017-07-14 08:42] VITALS: BP 157/76
[2017-07-14] MEDS: HEPARIN SUB-Q SCH (11:18)
[2017-07-14] MEDS: PROzac PO SCH (11:19)
[2017-07-14] MEDS: ABILIFY PO SCH (11:19)
--- NOTE | 2017-07-14 12:09 | Discharge Summary ---
Providers - Providers Date of Admission: 07/06/17 23:00 Attending physician: HUNTER LAZARO MD 07/07/17 15:11 Consult to Mental Health [CONS] Routine Reason For Exam: suicide attempt Place consult to:: [facility] Notified:: Yael HODGES Phone number called:: [phone] Was contact made?: Yes If yes, spoke with:: [facility] Time called:: 08:22 Primary care physician: ESCALATOR MECHANIC Hospitalization Reason for admission: Tylenol toxicity Condition: Stable Hospital course: The patient is a 56-year-old female presenting with a chief complaint toothache and overdose. The patient states she's had pain to the left lower jaw for the past 3-4 days. The patient states medications at home helping. The patient admits to taking 40 extended release Tylenol 650 mg tablets at one time yesterday at 20:00. When asked if she was trying to harm herself patient does not respond immediately and hesitates approximately 3 seconds while making eye contact and then states "no because I've taken that much before." Patient says she developed some nausea today Tylenol poisoning tylenol level was monitored and trended down , continue IVF, Poison control input appreciated She has received N- Acetylcystein and IVF Acute Toxic hepatitis -due to tylenol toxicity, continue to monitor, LFTs now improved -Effect of Tylenol discussed in detail with the patient the patient verbalized understanding. Pleasant control was okay with patient be discharged once ALT and AST are below 1000. Suicidal attempt continue 1013 initially inpatient psych placement was recommended but on reevaluation following multiple treatments this was rescinded and patient was stable for discharge home and to follow up with primary care physician. And also to follow with psychiatrist. Tooth ache/dental carries abx and pain meds Diabetes mellitus Patient was treated with insulin therapy. Disposition: DC/TX-06 HOME UNDER [facility] Time spent for discharge: 35 mins Core Measure Documentation - Palliative Care Palliative Care/ Comfort Measures: Not Applicable - Core Measures Any of the following diagnoses?: none - VTE Discharge Requirements Deep Vein Thrombosis/Pulmonary Embolism Present on Admission: No Exam - Physical Exam Narrative exam: VITAL SIGNS: Reviewed. GENERAL: The patient appeared well nourished and normally developed. Obese Vital signs as documented. HEAD: No signs of head trauma. EYES: Pupils are equal. Extraocular motions intact. EARS: Hearing grossly intact. MOUTH: Oropharynx is normal. Poor dentition NECK: No adenopathy, no JVD. CHEST: Chest with clear breath sounds bilaterally. No wheezes, rales, or rhonchi. CARDIAC: Regular rate and rhythm. S1 and S2, without murmurs, gallops, or rubs. VASCULAR: No Edema. Peripheral pulses normal and equal in all extremities. ABDOMEN: Soft, without detectable tenderness. No sign of distention. No rebound or guarding, and no masses palpated. Bowel Sounds normal. MUSCULOSKELETAL: Good range of motion of all major joints. Extremities without clubbing, cyanosis or edema. NEUROLOGIC EXAM: Alert and oriented x 3. No focal sensory or strength deficits. Speech normal. Follows commands. PSYCHIATRIC: Mood normal. SKIN: No rash or lesions. - Constitutional Vitals: Temp Pulse Resp BP Pulse Ox 98.2 F 69 20 157/76 94 07/14/17 08:40 07/14/17 09:03 07/14/17 11:25 07/14/17 08:40 07/14/17 08:40 Plan Activity: advance as tolerated, fall precautions Diet: regular Special Instructions: record daily weights, record daily BP diary, record blood sugar diary, home health RN Follow up with: PRIMARY CARE, [Primary Care Provider] - 3-5 Days JEREMI WELLS MD [Staff Physician] - 7 Days Prescriptions: traZODone [Desyrel] 50 mg PO QHS #14 tablet Amoxicillin [Trimox CAP] 500 mg PO Q8HR 7 Days ARIPiprazole [Abilify TAB] 5 mg PO QDAY #30 tablet
== END 2017-07-14 13:46 | disposition home or self-care (01) | DRG 917 ==
LOC: ED 19:43 → CC1 23:00 → 4A 07-07 15:39
PROVIDERS: ADMIT Internal Medicine; ATTEND Internal Medicine
DX: T39.1X2A Poisoning by 4-Aminophenol derivatives, intentional self-harm, initial encounter (principal); E43 Unspecified severe protein-calorie malnutrition; Z68.42 Body mass index [BMI] 45.0-49.9, adult; K71.2 Toxic liver disease with acute hepatitis; T14.91 Suicide attempt; M19.90 Unspecified osteoarthritis, unspecified site; E11.9 Type 2 diabetes mellitus without complications; F32.9 Major depressive disorder, single episode, unspecified; K02.9 Dental caries, unspecified; K08.89 Other specified disorders of teeth and supporting structures; Z90.49 Acquired absence of other specified parts of digestive tract; Z90.710 Acquired absence of both cervix and uterus; Y92.89 Other specified places as the place of occurrence of the external cause; Z79.4 Long term (current) use of insulin
CPT/HCPCS: 36415; 80048; 80053; 80074; 80307; 80320; 81001; 82140; 82962; 84450; 84460; 85025; 85610; 85730; 96365; 96368; 99285; G0480; J0132; J1170; J1644; J1815; J2405; J7030; J7060; J7070

== ENCOUNTER 2017-07-29 19:08 | Emergency (ER) | payer MEDICARE ==
[2017-07-29 20:00] LABS: Basophils % (Auto) 0.7 % (0.0-1.8); Hematocrit 38.2 % (30.3-42.9); Hemoglobin 11.8 gm/dl (10.1-14.3); Mean Corpuscular HGB Conc 31 % (30-34); Mean Corpuscular Volume 81 fl (79-97); Platelet Count 291 K/mm3 (140-440); Red Cell Distribution Width 16.7 % (13.2-15.2)
[2017-07-29 20:06] LABS: Anion Gap 17 mmol/L; Blood Urea Nitrogen 18 mg/dL (7-17); Carbon Dioxide 25 mmol/L (22-30); Chloride 102.5 mmol/L (98-107); Glucose 128 mg/dL (65-100); Mean Corpuscular Hemoglobin 25 pg (28-32); Potassium 4.3 mmol/L (3.6-5.0); Sodium 140 mmol/L (137-145)
[2017-07-29 21:56] LABS: Urine Drugs of Abuse Note Disclamer
[2017-07-29 22:23] LABS: Bilirubin,Urine NEG (Negative); Blood,Urine SM (Negative); Ketones,Urine NEG (Negative); Leukocyte Esterase,Urine MOD (Negative); Nitrite,Urine NEG (Negative); Protein,Urine <15 mg/dL mg/dL (Negative); RBC,Urine < 1.0 /HPF (0.0-6.0); Urobilinogen,Urine < 2.0 mg/dL (<2.0)
[2017-07-30 02:22] VITALS: BP 160/82
--- NOTE | 2017-07-30 03:05 | Emergency Department Report ---
ED General Adult HPI - General Chief complaint: Psych Stated complaint: SIDE PAIN, LEG/ANKLES/FEET PAIN Time Seen by Provider: 07/30/17 03:04 Source: patient, RN notes reviewed, old records reviewed Mode of arrival: Ambulatory Limitations: No Limitations - History of Present Illness Initial comments: This is a 56-year-old female, the patient is previously unknown to this provider. Patient has a past medical history of obesity, diabetes, recently admitted to the hospital for acetaminophen toxicity, presenting to the ER with multiple complaints. Patient's first complaint is lower abdominal cramping was present for the past 4 -5 days, does not radiate anywhere, has no exacerbating or relieving factors. Surgical history includes cholecystectomy and hysterectomy. No irritative or obstructive urinary symptoms. No nausea, vomiting or diarrhea or constipation. The patient's next complaint is burning lower extremity pain, which has been present for months. It is constant, and has no exacerbating or relieving factors. The patient's last complaint is depression and suicidality. This is no exacerbating or relieving factors. She endorsed having suicidal thoughts. She does not have access to guns or firearms. She is not having hallucinations. She is not attempted overdose by history. -: Gradual Location: abdomen, left, right, lower extremity Severity scale (0 -10): 0 Quality: burning Consistency: intermittent Improves with: other (as per history of present illness) Worsens with: other (as per history of present illness) Associated Symptoms: malaise, weakness. denies: confusion, chest pain, cough, diaphoresis, fever/chills, headaches, loss of appetite - Related Data Home Medications Medication Instructions Recorded Confirmed Last Taken Metoclopramide HCl [Metoclopramide 10 mg PO DAILY 04/14/17 07/30/17 1 Day Ago HCl Odt] Oxybutynin Chloride [Ditropan Xl] 15 mg PO QDAY 04/14/17 07/30/17 1 Day Ago Previous Rx's Medication Instructions Recorded Last Taken Type ALBUTEROL Inhaler [ProAir HFA 2 puff IH QID PRN #1 pump 04/16/17 1 Day Ago Rx Inhaler] AtorvaSTATin [Lipitor] 80 mg PO QHS #60 tablet 04/16/17 1 Day Ago Rx Gabapentin [Neurontin] 300 mg PO Q8HR #90 capsule 06/09/17 1 Day Ago Rx Insulin Glargine [Lantus VIAL] 40 units SQ QHS #1 vial 06/19/17 1 Day Ago Rx Metformin HCl [Fortamet ER] 1,000 mg PO BID #60 tab.er.24 06/19/17 1 Day Ago Rx glipiZIDE [glipiZIDE ER] 5 mg PO QAM #30 tab.er.24 06/19/17 1 Day Ago Rx ARIPiprazole [Abilify TAB] 5 mg PO QDAY #30 tablet 07/14/17 Unknown Rx Amoxicillin [Trimox CAP] 500 mg PO Q8HR 7 Days 07/14/17 Unknown Rx FLUoxetine HCL [FLUoxetine] 20 mg PO QAM #15 capsule 07/14/17 1 Day Ago Rx traZODone [Desyrel] 50 mg PO QHS #14 tablet 07/14/17 Unknown Rx Allergies Allergy/AdvReac Type Severity Reaction Status Date / Time No Known Allergies Allergy Verified 04/14/17 12:33 ED Review of Systems ROS: Stated complaint: SIDE PAIN, LEG/ANKLES/FEET PAIN Other details as noted in HPI Constitutional: malaise. denies: fever Eyes: denies: vision change ENT: denies: epistaxis Respiratory: denies: cough Cardiovascular: denies: chest pain Gastrointestinal: abdominal pain Genitourinary: denies: dysuria Musculoskeletal: back pain, arthralgia, myalgia Skin: denies: lesions Neurological: weakness Psychiatric: depression, suicidal thoughts. denies: homicidal thoughts ED Past Medical Hx - Past Medical History Previous Medical History?: Yes Hx Congestive Heart Failure: No Hx Diabetes: Yes Hx Liver Disease: No Hx Renal Disease: No Hx Arthritis: Yes Hx Kidney Stones: No Hx Psychiatric Treatment: Yes (depression, mood swings) Hx Asthma: No Hx COPD: No - Surgical History Past Surgical History?: Yes Hx Cholecystectomy: Yes Additional Surgical History: bladder surgery, hysteretomy, kidney stone removal x5, - Social History Smoking Status: Never Smoker Substance Use Type: None - Medications Home Medications: Home Medications Medication Instructions Recorded Confirmed Last Taken Type Metoclopramide HCl [Metoclopramide 10 mg PO DAILY 04/14/17 07/30/17 1 Day Ago History HCl Odt] Oxybutynin Chloride [Ditropan Xl] 15 mg PO QDAY 04/14/17 07/30/17 1 Day Ago History ALBUTEROL Inhaler [ProAir HFA 2 puff IH QID PRN #1 pump 04/16/17 07/30/17 1 Day Ago Rx Inhaler] AtorvaSTATin [Lipitor] 80 mg PO QHS #60 tablet 04/16/17 07/30/17 1 Day Ago Rx Gabapentin [Neurontin] 300 mg PO Q8HR #90 capsule 04/16/17 07/30/17 1 Day Ago Rx Insulin Glargine [Lantus VIAL] 40 units SQ QHS #1 vial 06/19/17 07/30/17 1 Day Ago Rx Metformin HCl [Fortamet ER] 1,000 mg PO BID #60 tab.er.24 06/19/17 07/30/17 1 Day Ago Rx glipiZIDE [glipiZIDE ER] 5 mg PO QAM #30 tab.er.24 06/19/17 07/30/17 1 Day Ago Rx ARIPiprazole [Abilify TAB] 5 mg PO QDAY #30 tablet 07/14/17 07/30/17 Unknown Rx Amoxicillin [Trimox CAP] 500 mg PO Q8HR 7 Days 07/14/17 07/30/17 Unknown Rx FLUoxetine HCL [FLUoxetine] 20 mg PO QAM #15 capsule 07/14/17 07/30/17 1 Day Ago Rx traZODone [Desyrel] 50 mg PO QHS #14 tablet 07/14/17 07/30/17 Unknown Rx ED Physical Exam - General Limitations: No Limitations General appearance: obese - Head Head exam: Present: atraumatic, normocephalic - Eye Eye exam: Present: normal appearance, EOMI. Absent: nystagmus - ENT ENT exam: Present: normal exam, normal orophraynx, mucous membranes moist, normal external ear exam - Neck Neck exam: Present: normal inspection, full ROM. Absent: tenderness, meningismus - Respiratory Respiratory exam: Present: normal lung sounds bilaterally. Absent: respiratory distress, wheezes, rales, rhonchi, stridor, chest wall tenderness - Cardiovascular Cardiovascular Exam: Present: regular rate, normal rhythm, normal heart sounds. Absent: bradycardia, tachycardia, irregular rhythm, systolic murmur, diastolic murmur, rubs, gallop - GI/Abdominal GI/Abdominal exam: Present: soft, normal bowel sounds. Absent: distended, tenderness, guarding, rebound, rigid, pulsatile mass - Extremities Exam Extremities exam: Present: normal inspection, full ROM, normal capillary refill , other (there is no redness, pus or streaking. There is no discharge. There is no crepitus. There is no tenderness.). Absent: tenderness, pedal edema, joint swelling, calf tenderness - Back Exam Back exam: Present: normal inspection, full ROM. Absent: tenderness, CVA tenderness (R), CVA tenderness (L), muscle spasm, paraspinal tenderness, vertebral tenderness - Neurological Exam Neurological exam: Present: alert, oriented X3, normal gait, other (Extraocular movements intact. Tongue midline. No facial droop. Facial sensation intact to light touch in the V1, V2, V3 distribution bilaterally. 5 and 5 strength in 4 extremities.. Sensation is intact to light touch in 4 extremities.). Absent : motor sensory deficit - Psychiatric Psychiatric exam: Present: flat affect, suicidal ideation. Absent: homicidal ideation - Skin Skin exam: Present: warm, dry, intact, normal color. Absent: rash ED Course Vital Signs 07/29/17 07/30/17 19:30 02:18 Temperature 98.4 F 97.5 F L Pulse Rate 80 85 Respiratory 20 16 Rate Blood Pressure 177/89 Blood Pressure 160/82 [Left] O2 Sat by Pulse 96 98 Oximetry - Reevaluation(s) Reevaluation #1: 07/30/17 05:49 CT scan is negative. Serum toxicology studies negative. Patient is resting comfortably. At this point in time, there does not appear to be any immediate medical contraindication to psychiatric admission/evaluation and consultation. The crisis team was informed. ED Medical Decision Making - Lab Data Result diagrams: 07/29/17 19:41 07/29/17 19:41 Vital Signs 07/29/17 07/30/17 19:30 02:18 Temperature 98.4 F 97.5 F L Pulse Rate 80 85 Respiratory 20 16 Rate Blood Pressure 177/89 Blood Pressure 160/82 [Left] O2 Sat by Pulse 96 98 Oximetry Lab Results 07/29/17 07/29/17 07/29/17 Range/Units 19:41 19:41 19:41 WBC 10.0 (4.5-11.0) K/mm3 RBC 4.70 (3.65-5.03) M/mm3 Hgb 11.8 (10.1-14.3) gm/dl Hct 38.2 (30.3-42.9) % MCV 81 (79-97) fl MCH 25 L (28-32) pg MCHC 31 (30-34) % RDW 16.7 H (13.2-15.2) % Plt Count 291 (140-440) K/mm3 Lymph % (Auto) 30.0 (13.4-35.0) % [place] % (Auto) 4.4 (0.0-7.3) % Eos % (Auto) 4.0 (0.0-4.3) % Baso % (Auto) 0.7 (0.0-1.8) % Lymph # 3.0 (1.2-5.4) K/mm3 [place] # 0.4 (0.0-0.8) K/mm3 Eos # 0.4 (0.0-0.4) K/mm3 Baso # 0.1 (0.0-0.1) K/mm3 Seg Neutrophils % 60.9 (40.0-70.0) % Seg Neutrophils # 6.1 (1.8-7.7) K/mm3 Sodium 140 (137-145) mmol/L Potassium 4.3 (3.6-5.0) mmol/L Chloride 102.5 (98-107) mmol/L Carbon Dioxide 25 (22-30) mmol/L Anion Gap 17 mmol/L BUN 18 H (7-17) mg/dL Creatinine 0.9 (0.7-1.2) mg/dL Estimated GFR > 60 ml/min BUN/Creatinine Ratio 20.00 % Glucose 128 H (65-100) mg/dL POC Glucose (70-105) Calcium 9.0 (8.4-10.2) mg/dL Total Bilirubin (0.1-1.2) mg/dL Direct Bilirubin (0-0.2) mg/dL Indirect Bilirubin mg/dL AST (5-40) units/L ALT (7-56) units/L Alkaline Phosphatase (35-129) units/L Total Creatine Kinase (30-135) units/L Total Protein (6.3-8.2) g/dL Albumin (3.9-5) g/dL Albumin/Globulin Ratio % HCG, Qual (Negative) Urine Color (Yellow) Urine Turbidity (Clear) Urine pH (5.0-7.0) Ur Specific [place] (1.003-1.030) Urine Protein (Negative) mg/dL Urine Glucose (UA) (Negative) mg/dL Urine Ketones (Negative) mg/dL Urine Blood (Negative) Urine Nitrite (Negative) Urine Bilirubin (Negative) Urine Urobilinogen (<2.0) mg/dL Ur Leukocyte Esterase (Negative) Urine WBC (Auto) (0.0-6.0) /HPF Urine RBC (Auto) (0.0-6.0) /HPF U Epithel Cells (Auto) (0-13.0) /HPF Urine Opiates Screen Urine Methadone Screen Ur Barbiturates Screen Ur Phencyclidine Scrn Ur Amphetamines Screen U Benzodiazepines Scrn Urine Cocaine Screen U Marijuana (THC) Screen Drugs of Abuse Note Plasma/Serum Alcohol < 0.01 (0-0.07) gm% 07/29/17 07/29/17 07/29/17 Range/Units 19:41 19:41 21:51 WBC (4.5-11.0) K/mm3 RBC (3.65-5.03) M/mm3 Hgb (10.1-14.3) gm/dl Hct (30.3-42.9) % MCV (79-97) fl MCH (28-32) pg MCHC (30-34) % RDW (13.2-15.2) % Plt Count (140-440) K/mm3 Lymph % (Auto) (13.4-35.0) % [place] % (Auto) (0.0-7.3) % Eos % (Auto) (0.0-4.3) % Baso % (Auto) (0.0-1.8) % Lymph # (1.2-5.4) K/mm3 [place] # (0.0-0.8) K/mm3 Eos # (0.0-0.4) K/mm3 Baso # (0.0-0.1) K/mm3 Seg Neutrophils % (40.0-70.0) % Seg Neutrophils # (1.8-7.7) K/mm3 Sodium (137-145) mmol/L Potassium (3.6-5.0) mmol/L Chloride (98-107) mmol/L Carbon Dioxide (22-30) mmol/L Anion Gap mmol/L BUN (7-17) mg/dL Creatinine (0.7-1.2) mg/dL Estimated GFR ml/min BUN/Creatinine Ratio % Glucose (65-100) mg/dL POC Glucose (70-105) Calcium (8.4-10.2) mg/dL Total Bilirubin 0.40 (0.1-1.2) mg/dL Direct Bilirubin < 0.2 (0-0.2) mg/dL Indirect Bilirubin 0.2 mg/dL AST 15 (5-40) units/L ALT 17 (7-56) units/L Alkaline Phosphatase 140 H (35-129) units/L Total Creatine Kinase 35 (30-135) units/L Total Protein 7.1 (6.3-8.2) g/dL Albumin 3.9 (3.9-5) g/dL Albumin/Globulin Ratio 1.2 % HCG, Qual Negative (Negative) Urine Color Yellow (Yellow) Urine Turbidity Clear (Clear) Urine pH 5.0 (5.0-7.0) Ur Specific [place] 1.016 (1.003-1.030) Urine Protein <15 mg/dl (Negative) mg/dL Urine Glucose (UA) Neg (Negative) mg/dL Urine Ketones Neg (Negative) mg/dL Urine Blood Sm (Negative) Urine Nitrite Neg (Negative) Urine Bilirubin Neg (Negative) Urine Urobilinogen < 2.0 (<2.0) mg/dL Ur Leukocyte Esterase Mod (Negative) Urine WBC (Auto) 1.0 (0.0-6.0) /HPF Urine RBC (Auto) < 1.0 (0.0-6.0) /HPF U Epithel Cells (Auto) 1.0 (0-13.0) /HPF Urine Opiates Screen Urine Methadone Screen Ur Barbiturates Screen Ur Phencyclidine Scrn Ur Amphetamines Screen U Benzodiazepines Scrn Urine Cocaine Screen U Marijuana (THC) Screen Drugs of Abuse Note Plasma/Serum Alcohol (0-0.07) gm% 07/29/17 07/30/17 Range/Units 21:51 01:28 WBC (4.5-11.0) K/mm3 RBC (3.65-5.03) M/mm3 Hgb (10.1-14.3) gm/dl Hct (30.3-42.9) % MCV (79-97) fl MCH (28-32) pg MCHC (30-34) % RDW (13.2-15.2) % Plt Count (140-440) K/mm3 Lymph % (Auto) (13.4-35.0) % [place] % (Auto) (0.0-7.3) % Eos % (Auto) (0.0-4.3) % Baso % (Auto) (0.0-1.8) % Lymph # (1.2-5.4) K/mm3 [place] # (0.0-0.8) K/mm3 Eos # (0.0-0.4) K/mm3 Baso # (0.0-0.1) K/mm3 Seg Neutrophils % (40.0-70.0) % Seg Neutrophils # (1.8-7.7) K/mm3 Sodium (137-145) mmol/L Potassium (3.6-5.0) mmol/L Chloride (98-107) mmol/L Carbon Dioxide (22-30) mmol/L Anion Gap mmol/L BUN (7-17) mg/dL Creatinine (0.7-1.2) mg/dL Estimated GFR ml/min BUN/Creatinine Ratio % Glucose (65-100) mg/dL POC Glucose 136 H (70-105) Calcium (8.4-10.2) mg/dL Total Bilirubin (0.1-1.2) mg/dL Direct Bilirubin (0-0.2) mg/dL Indirect Bilirubin mg/dL AST (5-40) units/L ALT (7-56) units/L Alkaline Phosphatase (35-129) units/L Total Creatine Kinase (30-135) units/L Total Protein (6.3-8.2) g/dL Albumin (3.9-5) g/dL Albumin/Globulin Ratio % HCG, Qual (Negative) Urine Color (Yellow) Urine Turbidity (Clear) Urine pH (5.0-7.0) Ur Specific [place] (1.003-1.030) Urine Protein (Negative) mg/dL Urine Glucose (UA) (Negative) mg/dL Urine Ketones (Negative) mg/dL Urine Blood (Negative) Urine Nitrite (Negative) Urine Bilirubin (Negative) Urine Urobilinogen (<2.0) mg/dL Ur Leukocyte Esterase (Negative) Urine WBC (Auto) (0.0-6.0) /HPF Urine RBC (Auto) (0.0-6.0) /HPF U Epithel Cells (Auto) (0-13.0) /HPF Urine Opiates Screen Presumptive negative Urine Methadone Screen Presumptive negative Ur Barbiturates Screen Presumptive negative Ur Phencyclidine Scrn Presumptive negative Ur Amphetamines Screen Presumptive negative U Benzodiazepines Scrn Presumptive negative Urine Cocaine Screen Presumptive negative U Marijuana (THC) Screen Presumptive negative Drugs of Abuse Note Disclamer Plasma/Serum Alcohol (0-0.07) gm% - Radiology Data Radiology results: pending, report reviewed Noncontrast CT scan of the abdomen and pelvis demonstrates no acute findings - Medical Decision Making Differential diagnosis: Neuropathic pain, constipation, functional abdominal pain, depression, suicidality, mood disorder Assessment and plan: 56-year-old female with multiple complaints. In terms of the patient's abdominal pain, she is afebrile, with reassuring vital signs, has a benign abdominal examination, I highly doubt intra-abdominal surgical disease or pathology, but we will obtain a noncontrast CT scan of the abdomen and pelvis to exclude occult disease. In terms of her leg pain, it appears to be historically consistent with neuropathic pain, this will be managed expectantly, she is weightbearing, and has a normal neurologic examination. In terms of her depression and suicidality, she has a GCS of 15, with an NIH score of 0 and walks with a steady gait, she is placed on a 1013. We will contact the psychiatry team when she's been deemed medically stable for psychiatric placement. Critical care attestation.: If time is entered above; I have spent that time in minutes in the direct care of this critically ill patient, excluding procedure time. ED Disposition Clinical Impression: Suicidal intent, Leg pain, Abdominal pain Disposition: [id number]/TX-65 PSY HOSP/PSY UNIT Is pt being admited?: No Does the pt Need Aspirin: No Condition: Good Referrals: JACOBO POND MD [Primary Care Provider] - 3-5 Days
[2017-07-30] MEDS ORDERED: PROAIR IH PRN (03:09)
[2017-07-30] MEDS ORDERED: ATIVAN IM PRN (03:09)
[2017-07-30] MEDS ORDERED: BENTYL PO ONE (03:09)
[2017-07-30] MEDS ORDERED: CARAFATE PO ONE (03:09)
[2017-07-30] MEDS ORDERED: NON-FORMULARY (Metformin Hcl [Fortamet Er] 1,000 MG) PO SCH (03:15)
[2017-07-30] MEDS ORDERED: GLUCOPHAGE ONE (03:28)
[2017-07-30] MEDS ORDERED: GLUCOPHAGE PO SCH ×3 (04:00→08:00)
[2017-07-30 04:09] LABS: Alanine Aminotransferase 17 units/L (7-56); Albumin 3.9 g/dL (3.9-5); Albumin/Globulin Ratio 1.2 %; Alkaline Phosphatase 140 units/L (35-129); Bilirubin,Direct < 0.2 mg/dL (0-0.2); Bilirubin,Indirect 0.2 mg/dL; Creatine Kinase 35 units/L (30-135); Total Protein 7.1 g/dL (6.3-8.2)
--- NOTE | 2017-07-30 05:28 | Cat Scan Report ---
FINAL REPORT EXAM: CT ABDOMEN PELVIS W/O CONTRAST. HISTORY: Lower abdominal pain. TECHNIQUE: Unenhanced axial CT images of the abdomen and pelvis were obtained, with sagittal and coronal reformatted images. No prior studies are available for comparison. FINDINGS: There are multiple punctate calcified granulomata scattered within the liver and spleen. The spleen is enlarged, measuring up to 14.8 cm in length. The gallbladder is not discretely visualized. The unenhanced biliary tree, pancreas, and adrenal glands are unremarkable. The left kidney is mildly atrophic compared to the right. The unenhanced kidneys demonstrate no discrete renal lesions. There are no radiopaque urinary tract calculi or evidence of urinary tract obstruction. Evaluation of bowel is limited due to lack of oral contrast. Moderate residual stool in the right colon. Several diverticula are seen in the sigmoid colon. There is no evidence of acute diverticulitis. There is no intestinal obstruction or free air. Of note, the appendix is normal. The abdominal aorta is normal in caliber. There is no pathologic abdominal or pelvic lymphadenopathy. There is no free or loculated fluid collection. The unopacified urinary bladder is not well distended, though grossly unremarkable. The patient is status post hysterectomy. Note is made of dystrophic calcifications at the umbilicus. There are calcifications seen within the regions of both gonadal veins. There are mild spondylotic changes in the spine. There is vacuum disc at L5-S1 and mild degenerative changes at both sacroiliac joints. There is mild linear scarring at the right anterior lung base. IMPRESSION: 1. No intestinal obstruction or free air. Normal CT appearance of the appendix. 2. Sigmoid diverticula, without evidence of acute diverticulitis. 3. Splenomegaly. Mild left renal atrophy.
[2017-07-30] MEDS ORDERED: NEURONTIN PO SCH (06:00)
[2017-07-30] MEDS ORDERED: GLUCOPHAGE XR PO SCH (08:00)
[2017-07-30] MEDS ORDERED: GLUCOTROL XL PO SCH (08:00)
[2017-07-30] MEDS ORDERED: REGLAN PO SCH (10:00)
[2017-07-30] MEDS ORDERED: PROzac PO SCH (10:00)
[2017-07-30] MEDS ORDERED: ABILIFY PO SCH (10:00)
--- NOTE | 2017-07-30 15:08 | Consultation ---
History of Present Illness - Reason for Consult Consult date: 07/30/17 Reason for consult: Mental Health Evaluation Requesting physician: JACOBO MCCABE - Chief Complaint Chief complaint: "I am depressed" - History of Present Psychiatric Illness This is a 56-year-old female, this patient is known to me. Today patient is calm and cooperative during the assessment. She stated that she she feel suicidal because she cannot see her grandchild. She stated that her daughter is being mean to her for no reason and want let her see the child. She stated having a plan to overdose to kill herself. She admitted to previous suicidal attempts in the past. She denies HI's and AVH's. She rate her depression 9/10, with 10 being the worse. She stated being hopeless, helpless and lacking motivation at this time. She denies recreational drug use and alcohol consumption. She stated that she need to cope better with stressors so she can erase the suicidal thoughts. Medications and Allergies Allergies Allergy/AdvReac Type Severity Reaction Status Date / Time No Known Allergies Allergy Verified 04/14/17 12:33 Home Medications Medication Instructions Recorded Confirmed Last Taken Type Metoclopramide HCl [Metoclopramide 10 mg PO DAILY 04/14/17 07/30/17 1 Day Ago History HCl Odt] Oxybutynin Chloride [Ditropan Xl] 15 mg PO QDAY 04/14/17 07/30/17 1 Day Ago History ALBUTEROL Inhaler [ProAir HFA 2 puff IH QID PRN #1 pump 04/16/17 07/30/17 1 Day Ago Rx Inhaler] AtorvaSTATin [Lipitor] 80 mg PO QHS #60 tablet 04/16/17 07/30/17 1 Day Ago Rx Gabapentin [Neurontin] 300 mg PO Q8HR #90 capsule 04/16/17 07/30/17 1 Day Ago Rx Insulin Glargine [Lantus VIAL] 40 units SQ QHS #1 vial 06/19/17 07/30/17 1 Day Ago Rx Metformin HCl [Fortamet ER] 1,000 mg PO BID #60 tab.er.24 06/19/17 07/30/17 1 Day Ago Rx glipiZIDE [glipiZIDE ER] 5 mg PO QAM #30 tab.er.24 06/19/17 07/30/17 1 Day Ago Rx ARIPiprazole [Abilify TAB] 5 mg PO QDAY #30 tablet 07/14/17 07/30/17 Unknown Rx Amoxicillin [Trimox CAP] 500 mg PO Q8HR 7 Days 07/14/17 07/30/17 Unknown Rx FLUoxetine HCL [FLUoxetine] 20 mg PO QAM #15 capsule 07/14/17 07/30/17 1 Day Ago Rx traZODone [Desyrel] 50 mg PO QHS #14 tablet 07/14/17 07/30/17 Unknown Rx Past psychiatric history - Past Medical History Past Medical History: diabetes Past Surgical History: No surgical history - past Psychiatric treatment and history Psych: Depression psychiatric treatment history: Multiple inpatient psy settings. She denies a fam psy hx. - Social History Social history: other (Reside at a long term) Mental Status Exam - Vital signs Last Vital Signs Temp 97.5 F L 07/30/17 02:18 Pulse 85 07/30/17 02:18 Resp 16 07/30/17 02:18 BP 160/82 07/30/17 02:18 Pulse Ox 98 07/30/17 02:18 - Exam Narrative exam: ROS: (+) depression MSE: Appearance: calm, cooperative Behavior: regular eye contact Speech: regular rate and tone Mood: "depressed" withdrawn, sad Affect: congruent to mood Thought Process: circumstantial Thought Content: denies SI/HI's and AVH's Motor Activity: sitting up in bed Cognition: A/O x3 Insight: variable Judgment: variable Results Result Diagrams: 07/29/17 19:41 07/29/17 19:41 Abnormal lab results 07/29/17 07/29/17 07/29/17 Range/Units 19:41 19:41 19:41 MCH 25 L (28-32) pg RDW 16.7 H (13.2-15.2) % BUN 18 H (7-17) mg/dL Glucose 128 H (65-100) mg/dL POC Glucose (70-105) Alkaline Phosphatase 140 H (35-129) units/L Salicylates (2.8-20.0) mg/dL 07/30/17 07/30/17 Range/Units 01:28 04:35 MCH (28-32) pg RDW (13.2-15.2) % BUN (7-17) mg/dL Glucose (65-100) mg/dL POC Glucose 136 H (70-105) Alkaline Phosphatase (35-129) units/L Salicylates < 0.3 L (2.8-20.0) mg/dL All other labs normal. Assessment and Plan Assessment and plan: Impression: Historical Dx: Depression. MDD recurrent severe type. Today patient is calm and cooperative during the assessment. Patient has SI's. DDx: R/O Bipolar DO Recommendation/Plan: Continue 1013 with placement to [facility]. Generalized coping skill discussed with patient.
[2017-07-30] MEDS ORDERED: LEVEMIR SUB-Q SCH (22:00)
[2017-07-30] MEDS ORDERED: NON-FORMULARY (Insulin Glargine 40 UNITS) SQ SCH (22:00)
[2017-07-30] MEDS ORDERED: DESYREL PO SCH (22:00)
== END 2017-07-30 10:25 ==
LOC: ED 19:08
DX: F32.9 Major depressive disorder, single episode, unspecified (principal); R10.30 Lower abdominal pain, unspecified; M79.605 Pain in left leg; M79.604 Pain in right leg; E11.9 Type 2 diabetes mellitus without complications; M19.90 Unspecified osteoarthritis, unspecified site
CPT/HCPCS: 36415; 74176; 80048; 80074; 80307; 81001; 82550; 82962; 84703; 85025; 99285; G0480; 80320